=== PATIENT | female | born 1995 | race Caucasian/White ===

== ENCOUNTER 2016-09-25 09:02 | Emergency (ER) | payer MEDICAID ==
[2016-09-25] MEDS: NORMAL SALINE 1000 ML 1,000 ML IV PRN ×2 (10:12→10:13)
[2016-09-25 10:19] LABS: ABSOLUTE EOSINOPHILS # (AUTO) 0.1 10^3/uL (0.0-0.6); ABSOLUTE MONOCYTES (AUTO) 0.7 10^3/uL (0.1-1.4); ABSOLUTE NEUT (AUTO) 14.3 10^3/uL (1.7-8.2); BASOPHILS % (AUTO) 0.2 % (0-2); EOSINOPHILS % (AUTO) 0.3 % (0-6); HEMATOCRIT 40.5 % (36.0-47.0); HEMOGLOBIN 13.5 g/dL (12.0-15.5); LYMPHOCYTES % (AUTO) 11.6 % (13-45); MEAN CORPUSCULAR HEMOGLOBIN 31.7 pg (27.0-33.4); MEAN CORPUSCULAR HGB CONC 33.3 g/dL (32.0-36.0); MEAN CORPUSCULAR VOLUME 95 fl (80-97); MONOCYTES % (AUTO) 4.3 % (3-13); RED BLOOD COUNT 4.26 10^6/uL (3.72-5.28); RED CELL DISTRIBUTION WIDTH 13.8 % (11.5-14.0); SEGMENTED NEUTROPHILS % (AUTO) 83.6 % (42-78); WHITE BLOOD COUNT 17.2 10^3/uL (4.0-10.5)
--- NOTE | 2016-09-25 10:25 | ER Document Report ---
ED GI/ - General Chief Complaint: Nausea/Vomiting Stated Complaint: VOMITING Time Seen by Provider: 09/25/16 10:06 Mode of Arrival: Ambulatory Information source: Patient Notes: 21 tajik female 14 weeks c/o vomiting for 2 days. No vaginal bleeding. No diarrhea. No fever or chills. TRAVEL OUTSIDE OF THE [place] IN LAST 30 DAYS: No - Related Data Allergies/Adverse Reactions: No Known Allergies Allergy (Verified 09/25/16 09:11) Past Medical History - General Information source: Patient - Social History Smoking Status: Never Smoker Chew tobacco use (# tins/day): No Frequency of alcohol use: None Drug Abuse: None Lives with: Spouse/Significant other Family History: Reviewed & Not Pertinent Patient has suicidal ideation: No Patient has homicidal ideation: No Neurological Medical History: Reports: Hx Migraine Past Surgical History: Reports: Hx Oral Surgery - Immunizations Hx Diphtheria, Pertussis, Tetanus Vaccination: Yes Review of Systems - Review of Systems Constitutional: No symptoms reported EENT: No symptoms reported Cardiovascular: No symptoms reported Respiratory: No symptoms reported Gastrointestinal: See HPI Genitourinary: No symptoms reported Female Genitourinary: No symptoms reported Musculoskeletal: No symptoms reported Skin: No symptoms reported Hematologic/Lymphatic: No symptoms reported Neurological/Psychological: No symptoms reported Physical Exam - Vital signs Vitals: Temp Pulse Resp BP Pulse Ox 98.1 F 80 18 114/67 100 09/25/16 09:11 09/25/16 09:11 09/25/16 09:11 09/25/16 09:11 09/25/16 09:11 Interpretation: Normal - General General appearance: Appears well, Alert - HEENT Head: Normocephalic, Atraumatic Eyes: Normal Pupils: PERRL Mucous membranes: Dry Neck: Supple. No: Lymphadenopathy - Respiratory Respiratory status: No respiratory distress Chest status: Nontender Breath sounds: Normal Chest palpation: Normal - Cardiovascular Rhythm: Regular Heart sounds: Normal auscultation Murmur: No - Abdominal Inspection: Normal Distension: No distension Bowel sounds: Normal Tenderness: Nontender Organomegaly: Other - gravid uterus - Back Back: Normal, Nontender. No: CVA tenderness - Extremities General upper extremity: Normal inspection, Nontender, Normal color, Normal ROM , Normal temperature General lower extremity: Normal inspection, Nontender, Normal color, Normal ROM , Normal temperature, Normal weight bearing. No: Addison's sign - Neurological Neuro grossly intact: Yes Cognition: Normal Orientation: AAOx4 Melissa Coma Scale Eye Opening: Spontaneous Melissa Coma Scale Verbal: Oriented Melissa Coma Scale Motor: Obeys Commands Becker Coma Scale Total: 15 Speech: Normal Motor strength normal: LUE, RUE, LLE, RLE Sensory: Normal - Psychological Associated symptoms: Normal affect, Normal mood - Skin Skin Temperature: Warm Skin Moisture: Dry Skin Color: Normal Skin irregularity: negative: Rash Course - Re-evaluation Re-evalutation: 09/25/16 12:11 pt able to keep gingerale and saltines down without vomiting. FHR 156, she feels much better, will treat with Keflex pending the urine culture. UA showed 1 + bacteria. - Vital Signs Vital signs: Temp Pulse Resp BP Pulse Ox 98.6 F 94 16 115/62 98 09/25/16 12:34 09/25/16 12:34 09/25/16 12:34 09/25/16 12:34 09/25/16 12:34 - Laboratory Result Diagrams: 09/25/16 10:04 09/25/16 10:04 Laboratory results interpreted by me: 09/25/16 09/25/16 10:04 10:04 WBC 17.2 H Seg Neutrophils % 83.6 H Lymphocytes % 11.6 L Absolute Neutrophils 14.3 H BUN 5 L Creatinine 0.46 L AST 118 H ALT 123 H Discharge - Discharge Clinical Impression: Possible urinary tract infection, Vomiting Qualifiers: Vomiting type: unspecified Vomiting Intractability: non-intractable Nausea presence: with nausea Qualified Code(s): R11.2 - Nausea with vomiting, unspecified Condition: Good Disposition: HOME, SELF-CARE Instructions: Vomiting ([facility]), Intravenous (IV) Fluids ([facility]), Urinary Tract Infection ([facility]), Cephalexin ([facility]) Additional Instructions: plenty of fluids to er if worse urine culture is pending see your oBGYN for follow up urine culture is pending Prescriptions: Cephalexin Monohydrate [Keflex 500 mg Capsule] 500 mg PO QID #28 capsule Referrals: MAYURI DRUMMOND MD [Primary Care Provider] - Follow up as needed
[2016-09-25 10:29] LABS: AMORPHOUS SEDIMENT,URINE TRACE /HPF; APPEARANCE,URINE CLOUDY; BILIRUBIN,URINE NEGATIVE (NEGATIVE); GLUCOSE, URINE NEGATIVE (NEGATIVE); KETONES,URINE NEGATIVE (NEGATIVE); LEUKOCYTE ESTERASE,URINE NEGATIVE (NEGATIVE); NITRITE,URINE NEGATIVE (NEGATIVE); PROTEIN,URINE NEGATIVE (NEGATIVE); UROBILINOGEN,URINE NEGATIVE mg/dL (<2.0)
--- NOTE | 2016-09-25 10:34 | ER Document Report ---
ED Medical Screen (RME) - General Chief Complaint: Nausea/Vomiting Stated Complaint: VOMITING Time Seen by Provider: 09/25/16 10:06 Notes: Patient is 14 weeks . Presents with nausea, vomiting, and lightheadedness. Called [facility] and was sent in. Patient denies bleeding or cramping. I have greeted and performed a rapid initial assessment of this patient. A comprehensive ED assessment and evaluation of the patient, analysis of test results and completion of the medical decision making process will be conducted by additional ED providers. TRAVEL OUTSIDE OF THE [place] IN LAST 30 DAYS: No - Related Data Allergies/Adverse Reactions: No Known Allergies Allergy (Verified 09/25/16 09:11) Past Medical History - Social History Chew tobacco use (# tins/day): No Frequency of alcohol use: None Drug Abuse: None - Past Medical History Cardiac Medical History: Denies: Hx Atrial Fibrillation, Hx Congestive Heart Failure, Hx Coronary Artery Disease, Hx Heart Attack, Hx Hypercholesterolemia, Hx Hypertension Pulmonary Medical History: Denies: Hx Asthma, Hx Bronchitis, Hx COPD, Hx Pneumonia, Hx Tuberculosis Neurological Medical History: Reports: Hx Migraine. Denies: Hx Cerebrovascular Accident, Hx Seizures Endocrine Medical History: Denies: Hx Diabetes Mellitus Type 1, Hx Diabetes Mellitus Type 2 Renal/ Medical History: Denies: Hx End Stage Renal Disease, Hx Kidney Stones, Hx Peritoneal Dialysis GI Medical History: Denies: Hx Gastroesophageal Reflux Disease, Hx Hiatal Hernia , Hx Ulcer Musculoskeltal Medical History: Denies Hx Arthritis Psychiatric Medical History: Denies: Hx Attention Deficit Hyperactivity Disorder, Hx Bipolar Disorder, Hx Depression, Hx Schizophrenia Past Surgical History: Reports: Hx Oral Surgery - Immunizations Hx Diphtheria, Pertussis, Tetanus Vaccination: Yes Physical Exam - Vital signs Vitals: Temp Pulse Resp BP Pulse Ox 98.1 F 80 18 114/67 100 09/25/16 09:11 09/25/16 09:11 09/25/16 09:11 09/25/16 09:11 09/25/16 09:11 Course - Vital Signs Vital signs: Temp Pulse Resp BP Pulse Ox 98.1 F 80 18 114/67 100 09/25/16 09:11 09/25/16 09:11 09/25/16 09:11 09/25/16 09:11 09/25/16 09:11 - Laboratory Result Diagrams: 09/25/16 10:04 09/25/16 10:04 Laboratory results interpreted by me: 09/25/16 10:04 WBC 17.2 H Seg Neutrophils % 83.6 H Lymphocytes % 11.6 L Absolute Neutrophils 14.3 H
[2016-09-25 10:41] LABS: ALANINE AMINOTRANSFERASE 123 U/L (9-52); ALBUMIN 4.3 g/dL (3.5-5.0); ALKALINE PHOSPHATASE 55 U/L (38-126); ANION GAP 13 (5-19); ASPARTATE AMINO TRANSFERASE 118 U/L (14-36); BILIRUBIN,DIRECT 0.3 mg/dL (0.0-0.4); BILIRUBIN,TOTAL 0.4 mg/dL (0.2-1.3); BLOOD UREA NITROGEN 5 mg/dL (7-20); CALCIUM 9.6 mg/dL (8.4-10.2); CARBON DIOXIDE 22 mmol/L (22-30); CHLORIDE 104 mmol/L (98-107); CREATININE RESULT 0.46 mg/dL (0.52-1.25); GLUCOSE 89 mg/dL (75-110); SODIUM 139.3 mmol/L (137-145); TOTAL PROTEIN 7.3 g/dL (6.3-8.2)
[2016-09-25] MEDS ORDERED: CEPHALEXIN 500 MG CAPSULE PO ONE (12:10)
[2016-09-25 12:35] VITALS: BP 115/62
== END 2016-09-25 12:35 | disposition home or self-care (01) ==
LOC: ER 09:02
DX: O21.9 Vomiting of pregnancy, unspecified (principal); Z3A.14 14 weeks gestation of pregnancy
CPT/HCPCS: 99283; 96360; 36415; 87086; 85025; 80053; 81001; J7030

== ENCOUNTER 2017-03-15 21:35 | Outpatient (CLI) | payer MEDICAID ==
--- NOTE | 2017-03-15 21:45 | Non Stress Test Report ---
Non Stress Test Datetime Report Generated by CPN: 03/15/2017 21:45 DEMOGRAPHIC EGA NST: 35.3 INDICATION Indication for Study: Other MONITORING Monitor Explained: Monitor Explained; Test Explained; Patient Verbalized Understanding Time on Monitor: 02/14/2017 20:24 Time off Monitor: 02/14/2017 21:32 NST Duration: 68 NST INTERVENTIONS NST Interventions: PO Hydration Physician Notified NST: Dr Cobos BABY A: [id number] BABY A Movement : Present Contraction Frequency : 2-4 FHR Baseline : 135 Accelerations : 15X15 Decelerations : None Variability : Moderate 6-25bpm NST Review: Meets Criteria for Reactive NST NST Review and Verified By : Shai Jackson RN NST Results: Reactive NST REPORT Report Trigger: Send Report
[2017-03-15 22:15] LABS: BILIRUBIN,URINE NEGATIVE (NEGATIVE); GLUCOSE, URINE NEGATIVE (NEGATIVE); KETONES,URINE TRACE mg/dL (NEGATIVE); LEUKOCYTE ESTERASE,URINE SMALL (NEGATIVE); NITRITE,URINE POSITIVE (NEGATIVE); PROTEIN,URINE 30 mg/dL (NEGATIVE); URINE SPECIFIC GRAVITY 1.025
[2017-03-15 22:17] LABS: APPEARANCE,URINE HAZY
[2017-03-15 22:58] LABS: URINE BARBITURATES SCREEN NEGATIVE; URINE METHADONE SCREEN NEGATIVE; URINE OPIATES LOW NEGATIVE; URINE PHENCYCLIDINE SCREEN NEGATIVE
[2017-03-15] MEDS ORDERED: ONDANSETRON 4 MG TAB.RAPDIS ONE (23:14)
[2017-03-15] MEDS ORDERED: ONDANSETRON 4 MG TAB.RAPDIS PO ONE (23:31)
[2017-03-15] MEDS ORDERED: RINGERS SOLUTION,LACTATED 1,000 ML IV PRN (23:58)
[2017-03-16] MEDS ORDERED: HYDROXYZINE PAMOATE 50 MG CAPSULE PO ONE (00:37)
[2017-03-16] MEDS ORDERED: HYDROXYZINE PAMOATE 50 MG CAPSULE ONE (00:41)
--- NOTE | 2017-03-16 01:11 | Non Stress Test Report ---
Non Stress Test Datetime Report Generated by CPN: 03/16/2017 01:11 DEMOGRAPHIC EGA NST: 39.4 INDICATION Indication for Study: Ordered by Provider MONITORING Monitor Explained: Monitor Explained; Test Explained; Patient Verbalized Understanding Time on Monitor: 03/15/2017 21:51 Time off Monitor: 03/16/2017 00:45 NST Duration: 174 NST INTERVENTIONS NST Interventions: PO Hydration; IV Fluids; Reposition Patient Physician Notified NST: Dr. Reyes BABY A Movement : Present Contraction Frequency : 3-6 FHR Baseline : 130 Accelerations : 15X15 Decelerations : None Variability : Moderate 6-25bpm NST Review: Meets Criteria for Reactive NST NST Review and Verified By : irma CH Results: Reactive NST REPORT Report Trigger: Send Report
== END 2017-03-16 01:03 | disposition home or self-care (01) ==
LOC: LC 21:35
PROVIDERS: ATTEND Student in an Organized Health Care Education/Training Program
PROC: 4A1HXCZ Monitoring of Products of Conception, Cardiac Rate, External Approach (ICD-10-PCS; principal; 2017-03-15)
DX: O47.1 False labor at or after 37 completed weeks of gestation (principal); Z3A.39 39 weeks gestation of pregnancy
CPT/HCPCS: 59025; 87086; 81005; 87088; 87186; 80307; S0119; J3490

== ENCOUNTER 2017-03-18 05:43 | Outpatient (CLI) | payer MEDICAID ==
[2017-03-18 06:16] LABS: AMNISURE (ROM) NEGATIVE (NEGATIVE)
--- NOTE | 2017-03-21 22:31 | Non Stress Test Report ---
Non Stress Test Datetime Report Generated by CPN: 03/21/2017 22:31 DEMOGRAPHIC EGA NST: 40.0 INDICATION Indication for Study: Ordered by Provider MONITORING Monitor Explained: Monitor Explained; Test Explained; Patient Verbalized Understanding Time on Monitor: 03/18/2017 06:38 Time off Monitor: 03/18/2017 06:50 NST Duration: 12 NST INTERVENTIONS NST Interventions: PO Hydration; Reposition Patient Physician Notified NST: Dr. Gerard BABY A: [id number] BABY A Movement : Present Contraction Frequency : 3-5 FHR Baseline : 135 Accelerations : 15X15 Decelerations : Variable Variability : Moderate 6-25bpm NST Review: Meets Criteria for Reactive NST NST Review and Verified By : DAQUAN Monahan Results: Reactive NST REPORT Report Trigger: Send Report
== END 2017-03-18 06:50 | disposition home or self-care (01) ==
LOC: LC 05:43
PROVIDERS: ATTEND Obstetrics & Gynecology
PROC: 4A1HXCZ Monitoring of Products of Conception, Cardiac Rate, External Approach (ICD-10-PCS; principal; 2017-03-18)
DX: O47.1 False labor at or after 37 completed weeks of gestation (principal); Z3A.40 40 weeks gestation of pregnancy
CPT/HCPCS: 59025; 84112

== ENCOUNTER 2017-03-21 22:30 | Inpatient (IN) | payer MEDICAID ==
[2017-03-21 23:17] LABS: APPEARANCE,URINE SLIGHTLY-CLOUDY; BILIRUBIN,URINE NEGATIVE (NEGATIVE); GLUCOSE, URINE NEGATIVE (NEGATIVE); KETONES,URINE NEGATIVE (NEGATIVE); LEUKOCYTE ESTERASE,URINE TRACE (NEGATIVE); NITRITE,URINE POSITIVE (NEGATIVE); PROTEIN,URINE NEGATIVE (NEGATIVE); URINE SPECIFIC GRAVITY 1.011; UROBILINOGEN,URINE NEGATIVE mg/dL (<2.0)
[2017-03-21] MEDS ORDERED: MISOPROSTOL 0.2 MG TABLET ONE (23:20)
[2017-03-21] MEDS ORDERED: LIDOCAINE 1% INJ-PF (10 MG/ML) 30 ML SDV ONE (23:20)
[2017-03-21] MEDS ORDERED: OXYTOCIN/NORMAL SALINE 20 UNIT/1,000 ML RTUINJ ONE (23:21)
[2017-03-21 23:23] LABS: AMNISURE (ROM) NEGATIVE (NEGATIVE)
[2017-03-21 23:31] LABS: URINE BARBITURATES SCREEN NEGATIVE; URINE METHADONE SCREEN NEGATIVE; URINE OPIATES LOW NEGATIVE; URINE PHENCYCLIDINE SCREEN NEGATIVE
[2017-03-21 23:41] LABS: ABSOLUTE EOSINOPHILS # (AUTO) 0.1 10^3/uL (0.0-0.6); ABSOLUTE MONOCYTES (AUTO) 0.7 10^3/uL (0.1-1.4); ABSOLUTE NEUT (AUTO) 8.7 10^3/uL (1.7-8.2); BASOPHILS % (AUTO) 0.3 % (0-2); EOSINOPHILS % (AUTO) 0.6 % (0-6); HEMATOCRIT 34.3 % (36.0-47.0); HEMOGLOBIN 11.8 g/dL (12.0-15.5); HGB HCT DIFFERENCE 1.1; LYMPHOCYTES % (AUTO) 23.8 % (13-45); MEAN CORPUSCULAR HEMOGLOBIN 30.3 pg (27.0-33.4); MEAN CORPUSCULAR HGB CONC 34.3 g/dL (32.0-36.0); MEAN CORPUSCULAR VOLUME 88 fl (80-97); MONOCYTES % (AUTO) 5.6 % (3-13); RED BLOOD COUNT 3.88 10^6/uL (3.72-5.28); RED CELL DISTRIBUTION WIDTH 14.1 % (11.5-14.0); SEGMENTED NEUTROPHILS % (AUTO) 69.7 % (42-78); WHITE BLOOD COUNT 12.5 10^3/uL (4.0-10.5)
[2017-03-22] MEDS ORDERED: FENTANYL/BUPIVACAINE/NS/PF 200 MCG/100 ML RTUINJ EPI ONE (00:07)
[2017-03-22] MEDS ORDERED: BUPIVACAINE HCL 0.25 % INJ/PF (2.5 MG/1 ML) 30 ML VIAL ONE (00:07)
[2017-03-22] MEDS ORDERED: EPHEDRINE SULFATE INJ 50 MG/1 ML AMPULE ONE (00:07)
[2017-03-22] MEDS ORDERED: ONDANSETRON HCL INJ/PF 4 MG/2 ML SDV ONE (01:05)
[2017-03-22] MEDS ORDERED: ONDANSETRON HCL INJ/PF 4 MG/2 ML SDV IV ONE (01:07)
[2017-03-22] MEDS ORDERED: OXYTOCIN/NORMAL SALINE 20 UNIT/1,000 ML RTUINJ IV PRN ×2 (01:43→02:08)
--- NOTE | 2017-03-22 01:58 | L&D Progress Notes ---
PROGRESS NOTES Datetime Report Generated by CPN: 03/22/2017 01:58 PROGRESS NOTE Impression: Normal Progression of Labor Procedures: Artificial ROM; Sterile Vag Exam Plan: Continue Present Management; Anticipate Vaginal Delivery Vital Signs : Reviewed; Within Normal Limits VAGINAL EXAM Dilatation: 8 Dilatation: 9 Effacement: 90 Effacement: 90 Station: -1 Station: 0 Contractions: q 2-3 min Contractions: q 2 min MEMBRANES Membranes: Intact Membranes: Ruptured Amniotic Fluid Color: Meconium, Light Amniotic Fluid Color: Meconium, Light FETUS A FHR - Baseline: 135 Monitoring: External US Variability: Moderate 6-25bpm Accelerations: 10X10 Decelerations: Variable FHR Category: Category II SIGNATURE SIGNATURE: [id number] SIGNATURE: ,[id number] SIGNATURE: ,[id number] SIGNATURE: ,[id number] Signature: with User ID: [email or web address]
[2017-03-22] MEDS ORDERED: ZOLPIDEM TARTRATE 5 MG TABLET PO PRN (02:08)
[2017-03-22] MEDS ORDERED: BENZOCAINE/MENTHOL AEROSOL SPRAY 56 ML TOP PRN (02:08)
[2017-03-22] MEDS ORDERED: DIBUCAINE 1% OINTMENT 28 GM TP PRN (02:08)
[2017-03-22] MEDS ORDERED: DIPH/PERTUSS(ACELL)/TETANUS VAC/PF 0.5 ML SYR (>=10YO) IM PRN (02:08)
[2017-03-22] MEDS ORDERED: MEASLES,MUMPS&RUBELLA VACC/PF 0.5 ML VIAL SUBCUT PRN (02:08)
[2017-03-22] MEDS ORDERED: PROMETHAZINE HCL 25 MG TABLET PO PRN (02:09)
[2017-03-22] MEDS ORDERED: ONDANSETRON HCL 8 MG TABLET PO PRN (02:09)
[2017-03-22] MEDS ORDERED: DIPHENHYDRAMINE HCL 25 MG CAPSULE PO PRN (02:10)
[2017-03-22] MEDS ORDERED: ACETAMINOPHEN 325 MG TABLET PO PRN (02:10)
[2017-03-22] MEDS ORDERED: FAMOTIDINE 20 MG TABLET PO PRN (02:11)
[2017-03-22] MEDS: RINGERS SOLUTION,LACTATED 1,000 ML IV PRN ×2 (02:41→02:42)
[2017-03-22] MEDS ORDERED: MAG HYDROX/AL HYDROX/SIMETH SUSP 30 ML UDCUP ONE (02:52)
[2017-03-22] MEDS ORDERED: FAMOTIDINE 20 MG TABLET ONE (02:55)
--- NOTE | 2017-03-22 03:10 | Delivery Summary ---
Del Sum A-C Datetime Report Generated by CPN: 03/22/2017 03:10 DELIVERY PERSONNEL DELIVERY PERSONNEL: [id number] Delivery Doctor:: Dr. Canela Labor and Delivery Nurse:: Hortensia Kilgore RNboat master Nurse:: Shobha Quesada RN Nursery Nurse:: Annie Cassidy RN Superintendent [employer]/S[employer]: Shanthi Lopez CNA Superintendent [employer]/SAL[employer]ERSON [employer]: Raquel Angeles, ST MATERNAL INFORMATION Delivery Anesthesia: Epidural Medications After Delivery: Pitocin Bolus-Please Comment Maternal Complications: Precipitous Labor (<3hrs) Provider Comments: Pt C_P at 0059. variable decels with pushing. At 0127, Kiwi applied with 1 pop-off. 2nd pop-off occurred at 0135. Pt continued to push with reassuring FHR but continued variables with contractions. Kiwi applied a final time at 0140 with subsequent pop-off. head at +2 station. Pt continued to push with progress made toward delivery. Ritgen maneuver performed to deliver head. Anterior and posterior shoulder delivered followed by rest of body. Baby placed on mom's abdomen. After 1 min, cord clamped x 2 and cut by FOB. Cord blood collected. Placenta delivered intact with 3VC. No lacerations noted. Fundus firm. LABOR SUMMARY EDC: 03/18/2017 00:00 No. Babies in Womb: 1 Attempted: No Labor Anesthesia: None LABOR INFORMATION Reason for Induction: Not Applicable Onset of Labor: 03/21/2017 23:03 Complete Dilatation: 03/22/2017 00:56 Oxytocin: N/A Group B Beta Strep: negative Antibiotics # of Doses: 0 Antibiotics Time of Last Dose: n/a Steroids Given: None Reason Steroids Not Administered: Not Applicable MEMBRANES Membranes Rupture Method: Artificial Rupture of Membranes: 03/21/2017 23:34 Length of Rupture (hr): 2.15 Amniotic Fluid Color: Light Meconium Amniotic Fluid Amount: Large Amniotic Fluid Odor: Normal STAGES OF LABOR Stage 1 hr: 1 Stage 1 min: 53 Stage 2 hr: 0 Stage 2 min: 47 Stage 3 hr: 0 Stage 3 min: 5 Total Time in Labor hr: 2 Total Time in Labor min: 45 VAGINAL DELIVERY Episiotomy: None Laceration #1: None Laceration Extension #1: N/A Laceration Repair: Not Applicable Sponge Count Correct: N/A Sharps Count Correct: Yes CSECTION DELIVERY Primary Indication: N/A Secondary Indication: N/A CSection Incidence: N/A Labor: N/A Elective: N/A CSection Incision: N/A BABY A INFORMATION Delivery Date/Time: 03/22/2017 01:43 Method of Delivery: Vaginal Born in Route : No : N/A Forceps: N/A Vacuum Extraction: Failed Shoulder Dystocia : No PRESENTATION/POSITION BABY A Presentation: Cephalic Cephalic Presentation: Vertex Vertex Position: Right Occipital Anterior Breech Presentation: N/A PLACENTA INFORMATION BABY A Placenta Delivery Time : 03/22/2017 01:48 Placenta Method of Delivery: Spontaneous Placenta Status: Delivered SCORES BABY A Heart Rate 1 min: >100 bpm Resp Effort 1 min: Good Cry Reflex Irritability 1 min: Cough or Sneeze or Pulls Away Muscle Tone 1 min: Active Motion Color 1 min: Blue/Pale Resuscitation Effort 1 min: Tactile Stimulation SCORE 1 MIN: 8 Heart Rate 5 min: >100 bpm Resp Effort 5 min: Good Cry Reflex Irritability 5 min: Cough or Sneeze or Pulls Away Muscle Tone 5 min: Active Motion Color 5 min: Body [place], Extremities Blue Resuscitation Effort 5 min: Tactile Stimulation SCORE 5 MIN: 9 INFORMATION BABY A Gestational Age at Delivery: 40.4 Gestational Status: Full Term- 39- 40.6 Weeks Infant Outcome : Liveborn Condition : Stable Sex: Male IDENTIFICATION BABY A Infant Verification Date/Time: 03/22/2017 02:01 ID Band Number: [id number] Mother's Name Verified: Yes RN Verifying : Carla A. RN Additional Verifying Personnel: Gloria Diop RN WEIGHT/LENGTH BABY A Birthweight (gm): 3620 Infant Weight (lb): 8 Weight (oz): 0 Length (in): 21.00 Length (cm): 53.34 CORD INFORMATION BABY A No. Cord Vessels: 3 Nuchal Cord : N/A Cord Blood Taken: Yes-For Storage (Mom's Blood type +) Infant Suction: Mouth; Nose ASSESSMENT BABY A Infant Complications: Extended Bradycardia; Multiple Late Decels Physical Findings- Other: see nursery assessment Infant Respirations: Appears Normal Skin to Skin: Yes Skin to Skin Time (min): 30 Child Care Leader/ALS Called : No Infant Care By: Celina Cassidy RN Transferred To: Remains with Mother SIGNATURES Signature: with User ID: [email or web address]
[2017-03-22] MEDS ORDERED: IBUPROFEN 800 MG TABLET ONE (03:39)
[2017-03-22] MEDS: IBUPROFEN 800 MG TABLET PO PRN ×2 (03:40→16:22)
--- NOTE | 2017-03-22 04:00 | Admission Physical ---
Datetime Report Generated by CPN: 03/22/2017 03:59 CURRENT ADMISSION Chief Complaint: Uterine Contractions Indication for Induction: Not Applicable Indication for Induction: Term, Intrauterine ; Active Labor; Intact Membranes Admit Plan: Admit to Unit; Initiate Labor Protocol ALLERGIES Medication Allergies: No Medication Allergies: No Known Allergies (03/21/2017) Medication Allergies: No Known Allergies (03/18/2017) Medication Allergies: No Known Allergies (03/15/2017) Medication Allergies: No Known Allergies (02/14/2017) Medication Allergies: No Known Allergies (09/25/2016) Medication Allergies: No Known Allergies (11/18/2014) Latex: No Latex Allergies Food Allergies: N/A Environmental Allergies: N/A OBSTETRICAL HISTORY EDC: 03/18/2017 00:00 : 3 Para: 1 Term: 1 : 0 SAB: 0 IAB: 0 Ectopic: 0 Livin Cesareans: 0 VBACs: 0 Multiple Births: 0 Gestational Diabetes: No Rh Sensitization: No Incompetent Cervix: No ASUNCION: No Infertility: No ART Treatment: No Uterine Anomaly: No IUGR: No Hx Previous C/S: No Macrosomia: No Hx Loss/Stillborn: No PIH: No Hx : No Placenta Previa/Abruption: No Depression/PP Depression: No PTL/PROM: No Post Hemorrhage: No Current Procedures: Ultrasound; NST Obstetrical History Comments: - 2008 SAB w/D_C G2- G3- current SEE RECORDS Alcohol: No Marijuana : No Cocaine: No Other Illicit Drugs: No Cigarettes: Never Smoker. [id number] MEDICAL HISTORY Diabetes: No Blood Transfusion: No Pulmonary Disease (Asthma, TB): No Breast Disease: No Hypertension: No Pipe Recovery Specialist Surgery: No Heart Disease: No Hosp/Surgery: Yes Autoimmune Disorder: No Anesthetic Complications: No Kidney Disease: No Abnormal Pap Smear: No Neuro/Epilepsy: No Psychiatric Disorders: No Other Medical Diseases: Yes Hepatitis/Liver Disease: No Significant Family History: No Varicosities/Phlebitis: No Trauma/Violence : No Thyroid Dysfunction: No Medical History Comments: oral infection w/all teeth removed 2015; childbirth INFECTIOUS HISTORY Gonorrhea: No Genital Herpes: No Chlamydia: No Tuberculosis: No Syphilis: No Hepatitis: No HIV/AIDS Exposure: No Rash or Viral Illness: No HPV: No PHYSICAL EXAM General: Normal HEENT: Normal Neurologic: Normal Abdomen: Normal Genitourinary Exam: Normal Extremities: Normal Pelvic Type: Adequate Vital Signs: Reviewed; Within Normal Limits VAGINAL EXAM Dilatation: 8 Dilatation: 9 Effacement: 90 Effacement: 90 Station: -1 Station: 0 Contraction Comments: q 2-3 min Contraction Comments: q 2 min MEMBRANES Membranes: Intact Membranes: Ruptured Amniotic Fluid Color: Meconium, Light Amniotic Fluid Color: Meconium, Light FETUS A EGA: 40.4 Monitoring: External US FHR- Baseline: 135 Variability: Moderate 6-25bpm Accelerations: 10X10 Decelerations: Variable FHR Category: Category II PLANS FOR LABOR AND DELIVERY Labor and Delivery: None Pain Management: Epidural Feeding Preference: Formula Benefit of Breast Feed Discussed: Yes INFORMED CONSENT Signature: with User ID: [email or web address]
[2017-03-22] MEDS ORDERED: IBUPROFEN 800 MG TABLET PO SCH (06:00)
[2017-03-22] MEDS: HYDROCODONE/ACETAMINOPHEN 5-325 MG TABLET PO PRN (07:35)
[2017-03-22] MEDS: FERROUS SULFATE 325 MG TABLET PO SCH ×2 (09:40→18:10)
[2017-03-22] MEDS: DOCUSATE SODIUM 100 MG CAPSULE PO SCH ×2 (09:40→18:10)
[2017-03-22] MEDS: PRENATAL VITAMIN W DHA CAPSULE PO SCH (09:40)
[2017-03-23 07:49] LABS: HEMATOCRIT 28.9 % (36.0-47.0); HEMOGLOBIN 9.8 g/dL (12.0-15.5); HGB HCT DIFFERENCE 0.5; MEAN CORPUSCULAR HEMOGLOBIN 30.6 pg (27.0-33.4); MEAN CORPUSCULAR HGB CONC 33.8 g/dL (32.0-36.0); MEAN CORPUSCULAR VOLUME 90 fl (80-97); RED CELL DISTRIBUTION WIDTH 14.4 % (11.5-14.0); WHITE BLOOD COUNT 9.3 10^3/uL (4.0-10.5)
[2017-03-23] MEDS: FERROUS SULFATE 325 MG TABLET PO SCH ×2 (09:38→17:40)
[2017-03-23] MEDS: PRENATAL VITAMIN W DHA CAPSULE PO SCH (09:39)
[2017-03-23] MEDS: DOCUSATE SODIUM 100 MG CAPSULE PO SCH ×2 (09:39→17:39)
[2017-03-23] MEDS: IBUPROFEN 800 MG TABLET PO PRN ×2 (09:50→20:05)
[2017-03-23] MEDS: HYDROCODONE/ACETAMINOPHEN 5-325 MG TABLET PO PRN (14:50)
[2017-03-23] MEDS ORDERED: ACETAMINOPHEN WITH CODEINE #3 TABLET PO PRN (15:09)
--- NOTE | 2017-03-23 15:12 | PDOC PROGRESS REPORT ---
Subjective-OB Subjective: Post Delivery Day: 21 year old. complaining of abd cramping, not controlled with ibuprofen. formula feeding. tolerating diet and activity, bleeding diminishing. Physical Exam (OB) Vital Signs: Temp Pulse Resp BP Pulse Ox 97.9 F 99 14 103/66 99 03/23/17 08:51 03/23/17 08:51 03/23/17 08:51 03/23/17 08:51 03/23/17 08:51 Intake & Output 03/22/17 03/23/17 03/24/17 06:59 06:59 06:59 Weight 66.5 kg - Abdomen Description: Soft, Round Hernia Present: No Fundal Description: Firm, Midline Fundal Height: u/u - u/2 - Extremities Lower extremities: Addison's sign - neg Calf: Nontender Objective-Diagnostic Laboratory: 03/23/17 07:31 03/23/17 07:31 WBC 9.3 RBC 3.20 L Hgb 9.8 L Hct 28.9 L MCV 90 MCH 30.6 MCHC 33.8 RDW 14.4 H Plt Count 172
[2017-03-24 08:19] VITALS: BP 101/66
--- NOTE | 2017-03-24 09:55 | PDOC PROGRESS REPORT ---
Subjective-OB Subjective: Post Delivery Day: 21 year old. Denies any needs at this time Doing well, no c/o, feeling good, eating well, ambulating, scant lochia, bottle feeding Physical Exam (OB) Vital Signs: Temp Pulse Resp BP Pulse Ox 98.0 F 87 15 101/66 99 03/24/17 08:51 03/24/17 08:51 03/24/17 08:51 03/24/17 08:51 03/24/17 08:51 Intake & Output 03/23/17 03/24/17 03/25/17 06:59 06:59 06:59 Intake Total 240 Balance 240 - Lochia Lochia Amount: Scant < 10 ml Lochia Color: Rubra/Red - Abdomen Description: Soft, Round Hernia Present: No Fundal Description: Firm, Midline Fundal Height: u/u - u/2 Objective-Diagnostic Laboratory: 03/23/17 07:31 Assessment and Plan(PN) - Assessment and Plan (1) Smoker Is this a current diagnosis for this admission?: Yes (2) Depression Qualifiers: Depression Type: unspecified Qualified Code(s): F32.9 - Major depressive disorder, single episode, unspecified Is this a current diagnosis for this admission?: Yes (3) Delivery normal Is this a current diagnosis for this admission?: Yes - Time Spent with Patient Time with patient: Less than 15 minutes Medications reviewed and adjusted accordingly: Yes - Disposition Anticipated Discharge: Home Within: Other - home today
--- NOTE | 2017-03-24 09:58 | PDOC DISCHARGE SUMMARY ---
Final Diagnosis Discharge Date: 03/24/17 - Final Diagnosis (1) Smoker Is this a current diagnosis for this admission?: Yes (2) Depression Is this a current diagnosis for this admission?: Yes (3) Delivery normal Is this a current diagnosis for this admission?: Yes Discharge Data - Discharge Medication Home Medications: Pnv No.95/Ferrous Fum/Folic AC [ Formula Tablet] 1 tab PO DAILY Ranitidine HCl [Zantac] 150 mg PO DAILY 03/21/17 Gestational Age: 40.4 Reason(s) for Admission: Onset of Labor Procedures: NST, Ultrasound Intrapartum Procedure(s): Vacuum Extraction - varianle decelerations, bradycardia, late decels - Data Baby 1 Male at 1 minute: 8 at 5 minutes: 9 Weight: 3.629 kg Home with Mother: Yes Complications: No - Diagnosis Test Laboratory: Temp Pulse Resp BP Pulse Ox 98.0 F 87 15 101/66 99 03/24/17 08:51 03/24/17 08:51 03/24/17 08:51 03/24/17 08:51 03/24/17 08:51 03/21/17 03/21/17 03/23/17 22:40 23:14 07:31 RBC 3.88 3.20 L Hgb 11.8 L 9.8 L Hct 34.3 L 28.9 L Urine Opiates Screen NEGATIVE - Discharge information/Instructions Discharge Activity: Activity As Tolerated, Balance Activity w/Rest, No Lifting Over 10 Pounds, No Lifting/Push/Pulling, Pelvic Rest, No tub bath Discharge Diet: As Tolerated Disposition: HOME, SELF-CARE Follow up with: [facility] in: 4, Weeks
[2017-03-24] MEDS: DOCUSATE SODIUM 100 MG CAPSULE PO SCH (10:30)
[2017-03-24] MEDS: FERROUS SULFATE 325 MG TABLET PO SCH (10:30)
[2017-03-24] MEDS: PRENATAL VITAMIN W DHA CAPSULE PO SCH (10:31)
== END 2017-03-24 12:17 | disposition home or self-care (01) | DRG 775 ==
LOC: LC 22:30 → LR 23:09 → 2S 03-22 03:59
PROVIDERS: ADMIT Obstetrics & Gynecology; ATTEND Obstetrics & Gynecology
PROC: 10D07Z6 Extraction of Products of Conception, Vacuum, Via Natural or Artificial Opening (ICD-10-PCS; principal; 2017-03-22)
PROC: 4A1HXCZ Monitoring of Products of Conception, Cardiac Rate, External Approach (ICD-10-PCS; 2017-03-22)
DX: O76 Abnormality in fetal heart rate and rhythm complicating labor and delivery (principal); O77.0 Labor and delivery complicated by meconium in amniotic fluid; O62.3 Precipitate labor; O99.334 Smoking (tobacco) complicating childbirth; O99.344 Other mental disorders complicating childbirth; F32.9 Major depressive disorder, single episode, unspecified; Z3A.40 40 weeks gestation of pregnancy; Z37.0 Single live birth
CPT/HCPCS: 36415; 59025; 80307; 81005; 84112; 85025; 85027; 86592; 86850; 86900; 86901; J2405; J2590; J3490

== ENCOUNTER 2018-05-11 15:16 | Emergency (ER) | payer SELFPAY ==
[2018-05-11 16:42] LABS: ABSOLUTE EOSINOPHILS # (AUTO) 0.1 10^3/uL (0.0-0.6); ABSOLUTE LYMPHOCYTES (AUTO) 1.4 10^3/uL (0.5-4.7); ABSOLUTE MONOCYTES (AUTO) 0.4 10^3/uL (0.1-1.4); ABSOLUTE NEUT (AUTO) 6.9 10^3/uL (1.7-8.2); BASOPHILS % (AUTO) 0.3 % (0-2); EOSINOPHILS % (AUTO) 0.6 % (0-6); HEMATOCRIT 39.9 % (36.0-47.0); HEMOGLOBIN 13.7 g/dL (12.0-15.5); LYMPHOCYTES % (AUTO) 15.6 % (13-45); MEAN CORPUSCULAR HEMOGLOBIN 31.2 pg (27.0-33.4); MEAN CORPUSCULAR HGB CONC 34.2 g/dL (32.0-36.0); MEAN CORPUSCULAR VOLUME 91 fl (80-97); MONOCYTES % (AUTO) 4.5 % (3-13); PLATELET COUNT 216 10^3/uL (150-450); RED BLOOD COUNT 4.38 10^6/uL (3.72-5.28); RED CELL DISTRIBUTION WIDTH 14.7 % (11.5-14.0); TOTAL CELLS COUNTED % (AUTO) 100 %; WHITE BLOOD COUNT 8.7 10^3/uL (4.0-10.5)
[2018-05-11] MEDS ORDERED: LIDOCAINE 1% INJ-PF (10 MG/ML) 30 ML SDV INJ ONE (16:46)
[2018-05-11] MEDS ORDERED: CEFTRIAXONE INJ 250 MG VIAL IM ONE (16:46)
[2018-05-11] MEDS ORDERED: AZITHROMYCIN 250 MG TABLET PO ONE (16:46)
[2018-05-11 16:50] LABS: APPEARANCE,URINE CLOUDY; BILIRUBIN,URINE NEGATIVE (NEGATIVE); COLOR,URINE AMBER; GLUCOSE, URINE NEGATIVE (NEGATIVE); KETONES,URINE NEGATIVE (NEGATIVE); LEUKOCYTE ESTERASE,URINE LARGE (NEGATIVE); NITRITE,URINE NEGATIVE (NEGATIVE); PROTEIN,URINE 30 mg/dL (NEGATIVE); URINE SPECIFIC GRAVITY 1.029; UROBILINOGEN,URINE NEGATIVE mg/dL (<2.0)
--- NOTE | 2018-05-11 16:52 | ER Document Report ---
ED GI/ - General Chief Complaint: Flank Pain Stated Complaint: PAINFUL URINATION,LOW BACK PAIN Time Seen by Provider: 05/11/18 16:05 Primary Care Provider: [facility] [Provider Group] - Follow up as needed MAYURI DRUMMOND MD [Primary Care Provider] - Follow up tomorrow Mode of Arrival: Ambulatory Information source: Patient Notes: 22-year-old female presented to ED for complaint of abdominal pain pelvic pain flank pain back pain and general body aches with fatigue weight loss urinary pain and something is not right. She states is been going on for more than a month. She states her and her baby's father have been living together for a while but that they are not having any sex recently and now she is developed a vaginal discharge with pelvic pain and she is very concerned. She states she has a history of depression but is not been treated for and she states that is making everything worse. TRAVEL OUTSIDE OF THE [place] IN LAST 30 DAYS: No - HPI Patient complains to provider of: Abdominal pain, Dysuria, Flank pain, Pelvic pain, Vaginal discharge, Vaginal pain Onset: Other - Couple months Timing/Duration: Gradual Quality of pain: Achy, Cramping, Pressure, Sharp Severity at maximum: Severe Severity in ED: Severe Pain Level: 5 Location: LUQ, LLQ, RUQ, RLQ, Left flank, Right flank, Low back, Pelvis Vaginal bleeding (Compared to normal period): None Associated symptoms: Dizzy, Nausea, Urinary frequency, Urinary urgency, Vaginal discharge, Vomiting Exacerbated by: Denies Relieved by: Denies Similar symptoms previously: Yes Recently seen / treated by doctor: Yes - Related Data Allergies/Adverse Reactions: No Known Allergies Allergy (Verified 03/21/17 22:39) Past Medical History - General Information source: Patient - Social History Smoking Status: Never Smoker Frequency of alcohol use: None Drug Abuse: None Lives with: Family Family History: Reviewed & Not Pertinent Patient has suicidal ideation: No Patient has homicidal ideation: No - Past Medical History Cardiac Medical History: Reports: None Pulmonary Medical History: Reports: None EENT Medical History: Reports: None Neurological Medical History: Reports: Hx Migraine Endocrine Medical History: Reports: None Renal/ Medical History: Reports: Hx Ovarian Cysts Malignancy Medical History: Reports: None GI Medical History: Reports: Hx Gastroesophageal Reflux Disease Musculoskeletal Medical History: Reports None Skin Medical History: Reports None Psychiatric Medical History: Reports: Hx Anxiety, Hx Depression Traumatic Medical History: Reports: None Infectious Medical History: Reports: None Past Surgical History: Reports: Hx Oral Surgery - All teeth removed she has dentures - Immunizations Immunizations up to date: Yes Hx Diphtheria, Pertussis, Tetanus Vaccination: Yes Review of Systems - Review of Systems Constitutional: Recent illness EENT: No symptoms reported Cardiovascular: Dizziness Respiratory: No symptoms reported Gastrointestinal: Abdominal pain, Nausea, Vomiting Genitourinary: Burning, Flank pain Female Genitourinary: Vaginal discharge Musculoskeletal: Muscle pain Skin: No symptoms reported Hematologic/Lymphatic: No symptoms reported Neurological/Psychological: No symptoms reported -: Yes All other systems reviewed and negative Physical Exam - Vital signs Vitals: Temp Pulse Resp BP Pulse Ox 98.2 F 76 18 109/69 100 05/11/18 15:23 05/11/18 15:23 05/11/18 15:23 05/11/18 15:23 05/11/18 15:23 Interpretation: Normal - General General appearance: Appears well, Alert In distress: Mild - HEENT Head: Normocephalic, Atraumatic Eyes: Normal Pupils: PERRL - Respiratory Respiratory status: No respiratory distress Chest status: Nontender Breath sounds: Normal Chest palpation: Normal - Cardiovascular Rhythm: Regular Heart sounds: Normal auscultation Murmur: No - Abdominal Inspection: Normal Distension: No distension Bowel sounds: Normal Tenderness: Tender - Generalized Organomegaly: No organomegaly. No: Hepatomegaly, Splenomegaly, Mass - Genitourinary External exam: Other - Excoriated Speculum exam: Vaginal discharge - Green copious amounts, Other - Inflamed cervix and vagina Vaginal bleeding: None Bimanuel exam: Cervical motion tender, Adnexal tenderness - Back Back: Normal, Nontender - Extremities General upper extremity: Normal inspection, Nontender, Normal color, Normal ROM, Normal temperature General lower extremity: Normal inspection, Nontender, Normal color, Normal ROM, Normal temperature, Normal weight bearing. No: Addison's sign - Neurological Neuro grossly intact: Yes Cognition: Normal Orientation: AAOx4 [place] Coma Scale Eye Opening: Spontaneous [place] Coma Scale Verbal: Oriented Melissa Coma Scale Motor: Obeys Commands Melissa Coma Scale Total: 15 Speech: Normal Motor strength normal: LUE, RUE, LLE, RLE Sensory: Normal - Psychological Associated symptoms: Anxious, Tearful - Skin Skin Temperature: Warm Skin Moisture: Dry Skin Color: Normal Course - Re-evaluation Re-evalutation: 05/11/18 20:24 Labs and ultrasound were discussed with patient and written report of labs and ultrasound given to patient for follow-up with primary doctor and [facility]. Discharge instructions discussed and patient was able to verbalize understanding and agreement with treatment plan. - Vital Signs Vital signs: Temp Pulse Resp BP Pulse Ox 98.9 F 73 16 104/55 L 98 05/11/18 19:12 05/11/18 19:12 05/11/18 19:12 05/11/18 19:12 05/11/18 19:12 - Laboratory Result Diagrams: 05/11/18 16:30 05/11/18 16:30 Laboratory results interpreted by me: 05/11/18 05/11/18 15:59 16:30 RDW 14.7 H Seg Neutrophils % 79.0 H Urine Protein 30 H Urine Blood SMALL H Ur Leukocyte Esterase LARGE H - Diagnostic Test Radiology reviewed: Image reviewed, Reports reviewed Discharge - Discharge Clinical Impression: Bacterial vaginosis, Vaginal yeast infection, Pelvic pain UTI (urinary tract infection) Qualifiers: Urinary tract infection type: site unspecified Hematuria presence: with hematuria Qualified Code(s): N39.0 - Urinary tract infection, site not specified Ovarian cyst Qualifiers: Laterality: left Qualified Code(s): N83.202 - Unspecified ovarian cyst, left side Condition: Stable Disposition: HOME, SELF-CARE Additional Instructions: URINARY TRACT INFECTION: Your evaluation indicates that you have a urinary tract infection. This is due to germs growing in the bladder. This is a common problem. This infection usually responds quickly to antibiotics. Your antibiotic should be taken exactly as prescribed. Drink plenty of fluids -- three to four quarts a day. Occasionally, a bladder anesthetic will be prescribed to help stop the feeling of urgency until the antibiotic has a chance to clear the infection. This may cause your urine to be dark orange. Certain urine infections require a culture. If the doctor obtained a culture, the results will be back in two days. You should call to see if a change in treatment is needed. A repeat urinalysis after you finish treatment is often recommended. The physician will let you know if further testing is required. Call the doctor if you develop fever, chills, flank pain, inability to urinate, or blood in the urine. Ovarian Cyst as I have discussed with you it is a possible ovarian cyst on the left ovary but if it does not resolve it could be something more dangerous that is why you need to follow-up with [facility] in 3-4 days and have them monitor this left ovary. Your examination shows the presence of an ovarian cyst. This is a ball of fluid attached to the ovary. Ovarian cysts in women of child-bearing age are usually innocent. However, the cyst may cause pain when it grows or bursts. An innocent ovarian cyst will usually go away by itself. When the cyst becomes painful, you should rest. Pain medication may be required. Some women find a hot water bottle soothing. The pain usually resolves within one or two days. After menopause, an ovarian cyst may mean a tumor, and requires more aggressive evaluation -- usually surgery is recommended to remove or biopsy the cyst. A very large cyst requires evaluation at any age. Most cysts (even the innocent ones) require follow-up examination. Call the doctor or return at any time if the pain increases significantly, if you become faint, or if you experience vaginal bleeding. VAGINOSIS, BACTERIAL: Your exam shows you have bacterial vaginosis. This condition is due to an overgrowth of bacteria in the vagina. Symptoms may include vaginal itching or pain, a smelly discharge, and sometimes burning with urination. Normally this is not transmitted by sexual contact. Vaginosis can be treated with oral or topical antibiotics. Metronidazole (Flagyl) pills are usually effective. Topical vaginal creams include Cleocin and Metro-Gel. You should avoid sexual contact until your symptoms are all better. Call the doctor if you develop pelvic pain, fever, or problems with urination, or if you don't improve as expected. VAGINAL YEAST INFECTION: You have evidence of a yeast infection -- called "wilmer." A vaginal yeast infection often causes itching and discharge. While not dangerous, it can be very unpleasant. A yeast infection often follows the use of powerful antibiotics. It is more likely to occur in diabetics. The treatment now is usually a single pill of Diflucan, but also an antifungal cream or suppository may be used for a few days. You do not need to avoid sexual intercourse. Recurrences are common. You can make a recurrence less likely by wearing cotton underwear and avoiding tight clothing. For mild recurrences, you can try kpfx-mcp-dpatjms creams or suppositories that are made specifically for yeast. If the symptoms do not resolve, you should follow up for re-examination. Sometimes treatment of the sexual partner is necessary if infections are recurrent. CEPHALOSPORINS: An antibiotic of the cephalosporin class has been prescribed. This type of antibiotic covers a wide variety of infections, including those of the skin, lungs, middle ear, and urinary tract. This antibiotic is somewhat similar to the penicillin family. In rare cases, a person who is allergic to penicillin will also be allergic to this medication. If you have had a severe allergic reaction to penicillin, and have not taken this antibiotic since that time, notify your doctor. Antibiotics which cover many germs ("broad spectrum" antibiotics) are more likely to cause diarrhea or "yeast" infections. Women prone to vaginal yeast problems may suffer an attack after taking this antibiotic. In infants, oral thrush (white spots "stuck" on the cheek) or yeast diaper rash may result. See your doctor if these problems occur. Call the doctor at once if you develop hives, itching, shortness of breath, or lightheadedness. AZITHROMYCIN: Azithromycin (Zithromax) is a broad spectrum antibiotic in the same class as erythromycin. It can treat a variety of bacterial infections, but is most frequently used for respiratory infections. Azithromycin is extremely long-lasting. It accumulates in body tissues and continues to kill bacteria for many days. In order to improve absorption, Azithromycin should be taken at least one hour before or two hours after a meal. It does not have the same strong tendency to upset the stomach as erythromycin and is usually very well tolerated. Patients who have had a rash or other true allergic reactions to erythromycin should not take this medication. Call if you develop gastrointestinal distress, severe diarrhea, rash, hives, itching, or shortness of breath. METRONIDAZOLE: Metronidazole (Flagyl) has been prescribed. This medication is used to kill a type of bacteria called anaerobes, and protozoan parasites such as trichomonas and Giardia. Flagyl often causes a metallic taste in the mouth and mild nausea. Do not use alcohol in any form with Flagyl (including alcohol in medication elixirs). Flagyl interacts with alcohol to cause flushing, palpitations, headache, stomach cramps, and vomiting. Do not use Flagyl if you are taking Antabuse (disulfiram). Call the doctor at once if you develop rash, shortness of breath, itching, or lightheadedness. FLUCONAZOLE: Fluconazole (Diflucan) is an antifungal drug. It is useful for serious fungal infections, but is also excellent for oral or vaginal yeast infections. Diflucan interacts with some medicines. This is a concern if you are taking anticoagulants (such as Coumadin), phenytoin (Dilantin), cyclosporin, or oral hypoglycemics (such as tolbutamide, Orinase, glipizide, Glucotrol, glyburide, DiaBeta, Glynase, and Micronase). Be sure the doctor knows if you are taking one of these medicines. We don't know how Diflucan affects . If you are planning to become , discuss this with your doctor. Diflucan has few side effects. Minor side effects may include nausea, headache, or diarrhea. Call the doctor if you develop a skin rash, shortness of breath, or other new symptoms. CIPROFLOXACIN: You have been given an antibacterial agent, ciprofloxacin (Cipro). This medicine is not related to the penicillins, sulfas, cephalosporins, or tetracyclines. It is often given to patients who are allergic to these drugs. It has been chosen for you either because other drugs are not appropriate, or because of the nature of your problem. Cipro should not be taken with antacids, as these can decrease its effec tiveness. It can be taken without regard to meals. CIPRO SHOULD NOT BE TAKEN BY CHILDREN, NURSING WOMEN, OR WOMEN. Although Cipro is usually well-tolerated, common side effects can include nausea and diarrhea. Contact your doctor if you experience any unusual symptoms while on this medication, such as joint pain or swelling, shortness of breath, wheezing, faintness, or hives. FOLLOW-UP CARE: If you have been referred to a physician for follow-up care, call the physicians office for an appointment as you were instructed or within the next two days. If you experience worsening or a significant change in your symptoms, notify the physician immediately or return to the Emergency Department at any time for re-evaluation. Prescriptions: Ciprofloxacin HCl [Cipro 500 mg Tablet] 500 mg PO BID #10 tablet Fluconazole [Diflucan] 150 mg PO ONCE PRN #1 tablet PRN Reason: Metronidazole [Flagyl 500 mg Tablet] 500 mg PO BID #14 tablet Referrals: MAYURI DRUMMOND MD [Primary Care Provider] - Follow up tomorrow [facility] [Provider Group] - Follow up as needed
[2018-05-11 16:59] LABS: ALANINE AMINOTRANSFERASE 27 U/L (9-52); ALBUMIN 4.8 g/dL (3.5-5.0); ALKALINE PHOSPHATASE 58 U/L (38-126); ANION GAP 10 (5-19); ASPARTATE AMINO TRANSFERASE 17 U/L (14-36); BILIRUBIN,DIRECT 0.1 mg/dL (0.0-0.4); BILIRUBIN,TOTAL 0.6 mg/dL (0.2-1.3); BLOOD UREA NITROGEN 14 mg/dL (7-20); CALCIUM 9.4 mg/dL (8.4-10.2); CARBON DIOXIDE 26 mmol/L (22-30); CHLORIDE 106 mmol/L (98-107); GLUCOSE 100 mg/dL (75-110); LIPASE 212.7 U/L (23-300); POTASSIUM 4.3 mmol/L (3.6-5.0); SODIUM 141.9 mmol/L (137-145); TOTAL PROTEIN 7.1 g/dL (6.3-8.2)
[2018-05-11 17:05] LABS: BACTERIA (WET MOUNT) 4+ BACTERIA SEEN; T.VAGINALIS (WET MOUNT) NO TRICHOMONAS SEEN; WBCS (WET MOUNT) 4+ WBCS SEEN; YEAST (WET MOUNT) BUDDING YEAST SEEN
[2018-05-11 17:26] LABS: FREE T3 3.03 pg/mL (2.77-5.27); FREE T4 (FREE THYROXINE) 0.9 ng/dL (0.78-2.19)
[2018-05-11 17:39] LABS: THYROID STIMULATING HORMONE 2.63 uIU/mL (0.47-4.68)
[2018-05-11 18:32] LABS: CHLAM PCR NOT DETECTED (NOT DETECT); GON PCR NOT DETECTED (NOT DETECT)
[2018-05-11] MEDS ORDERED: ONDANSETRON 4 MG TAB.RAPDIS PO ONE (18:37)
--- NOTE | 2018-05-11 18:53 | RADIOLOGY REPORT (SQ) ---
EXAM DESCRIPTION: U/S NON-OB PELVIS TV W/O DOP COMPLETED DATE/TIME: 05/11/2018 6:35 pm REASON FOR STUDY: pelvic pain vaginal discharge COMPARISON: None. TECHNIQUE: Dynamic and static grayscale images acquired of the pelvis via transvaginal approach and recorded on PACS. Additional selected color Doppler and spectral images recorded. LIMITATIONS: None. FINDINGS: UTERUS: Contour normal. No mass. ENDOMETRIAL STRIPE: No focal or generalized thickening. No masses. CERVIX: No nabothian cysts. RIGHT OVARY AND DOPPLER: Normal size. No worrisome masses. Normal arterial vascular flow without evid ence for torsion. LEFT OVARY AND DOPPLER: There is a 2.1 x 1.9 x 2.3 cm mass in the left ovary with extensive internal echo is but no blood flow. This may be a hemorrhagic cyst. Solid mass not excluded. FREE FLUID: Pelvic free fluid. OTHER: No other significant finding. MEASUREMENTS: UTERUS: 8.6 cm ENDOMETRIAL STRIPE: 4.3 mm RIGHT OVARY: 4.3 cm LEFT OVARY: 3.5 cm IMPRESSION: Probable hemorrhagic cysts in the left ovary, however follow-up recommended to exclude a solid mass. Free fluid in the pelvis. COMMENT: Followup of asymptomatic indeterminate ovarian cysts detected by ultrasound in PREMENOPAUS [place] patients Cyst with findings suggestive of, but not classic for, hemorrhagic cyst, endometrioma or dermoid: *6-12 week followup US; if not a resolving hemorrhagic cyst, continued US or MRI followup; if endomet rioma or dermoid still not confirmed, consider surgical consultation Note: If cyst is clinically symptomatic or otherwise concerning, other followup may be warranted. Based on recommendations of the Society for Radiologists in Ultrasound Consensus Conference Statement 2010 on management of asymptomatic ovarian and other adnexal cysts imaged at ultrasound. TECHNICAL DOCUMENTATION: JOB ID: [id number] [employer]- All Rights Reserved Rev-08/28 Reading location - IP/workstation name: [email or web address]
[2018-05-11 19:13] VITALS: BP 104/55
== END 2018-05-11 19:23 | disposition home or self-care (01) ==
LOC: ER 15:16
DX: N39.0 Urinary tract infection, site not specified (principal); N76.0 Acute vaginitis; B96.89 Other specified bacterial agents as the cause of diseases classified elsewhere; N83.202 Unspecified ovarian cyst, left side; B37.3 Candidiasis of vulva and vagina; R10.2 Pelvic and perineal pain; R10.9 Unspecified abdominal pain; M54.9 Dorsalgia, unspecified; M79.10 Myalgia, unspecified site; R53.83 Other fatigue; R30.0 Dysuria; R10.12 Left upper quadrant pain; R10.11 Right upper quadrant pain; R10.31 Right lower quadrant pain; R10.32 Left lower quadrant pain; R42 Dizziness and giddiness; R11.2 Nausea with vomiting, unspecified
CPT/HCPCS: 99284; 96372; 36415; 84439; 87210; 83690; 84443; 84703; 85025; 80053; 81001; 84481; 87491; 87591; 76830; S0119; J3490; J0696

== ENCOUNTER 2019-06-21 19:21 | Inpatient (IN) | payer MEDICAID ==
[2019-06-21 20:16] LABS: APPEARANCE,URINE CLOUDY; BILIRUBIN,URINE NEGATIVE (NEGATIVE); COLOR,URINE YELLOW; GLUCOSE, URINE NEGATIVE (NEGATIVE); KETONES,URINE NEGATIVE (NEGATIVE); LEUKOCYTE ESTERASE,URINE LARGE (NEGATIVE); NITRITE,URINE POSITIVE (NEGATIVE); PROTEIN,URINE NEGATIVE (NEGATIVE); UROBILINOGEN,URINE NEGATIVE mg/dL (<2.0)
[2019-06-21 20:30] LABS: URINE AMPHETAMINES SCREEN NEGATIVE; URINE BARBITURATES SCREEN NEGATIVE; URINE BENZODIAZEPINES SCREEN NEGATIVE; URINE COCAINE SCREEN NEGATIVE; URINE METHADONE SCREEN NEGATIVE; URINE PHENCYCLIDINE SCREEN NEGATIVE
[2019-06-21] MEDS ORDERED: RINGERS SOLUTION,LACTATED 1,000 ML IV ONE (20:33)
[2019-06-21] MEDS ORDERED: RINGERS SOLUTION,LACTATED 1,000 ML IV PRN ×2 (20:33→22:25)
[2019-06-21 20:39] LABS: URINE MARIJUANA (THC) SCREEN UNCONFIRMED POSITIVE
[2019-06-21] MEDS ORDERED: CEFTRIAXONE INJ 1000 MG VIAL ONE (20:41)
[2019-06-21 20:59] LABS: ABSOLUTE EOSINOPHILS # (AUTO) 0.1 10^3/uL (0.0-0.6); ABSOLUTE LYMPHOCYTES (AUTO) 2.9 10^3/uL (0.5-4.7); ABSOLUTE MONOCYTES (AUTO) 0.6 10^3/uL (0.1-1.4); BASOPHILS % (AUTO) 0.3 % (0-2); HEMATOCRIT 31.7 % (36.0-47.0); LYMPHOCYTES % (AUTO) 24.5 % (13-45); MEAN CORPUSCULAR HEMOGLOBIN 31.4 pg (27.0-33.4); MEAN CORPUSCULAR HGB CONC 34.6 g/dL (32.0-36.0); MEAN CORPUSCULAR VOLUME 91 fl (80-97); MONOCYTES % (AUTO) 5.4 % (3-13); PLATELET COUNT 248 10^3/uL (150-450); RED CELL DISTRIBUTION WIDTH 13.8 % (11.5-14.0); SEGMENTED NEUTROPHILS % (AUTO) 68.8 % (42-78); TOTAL CELLS COUNTED % (AUTO) 100 %; WHITE BLOOD COUNT 11.7 10^3/uL (4.0-10.5)
[2019-06-21] MEDS ORDERED: CEFTRIAXONE 2 GM/D5W RTU 2 GM/50 ML RTUPB IV SCH (22:00)
--- NOTE | 2019-06-21 22:22 | Admission Physical ---
Datetime Report Generated by CPN: 06/21/2019 22:22 CURRENT ADMISSION Chief Complaint: Signs/Symptoms UTI Chief Complaint Other: Pyleonephritis on left Admit Impression : No Active Labor; Intact Membranes; Observation/Evaluation Admit Plan: Admit to Unit; Observation/Evaluation ALLERGIES Medication Allergies: No Medication Allergies: No Known Allergies (03/21/2017) Latex: No Latex Allergies Food Allergies: none Environmental Allergies: none OBSTETRICAL HISTORY EDC: 06/24/2019 00:00 : 4 Para: 2 SAB: 1 Livin Gestational Diabetes: No Rh Sensitization: No Incompetent Cervix: No ASUNCION: No Infertility: No ART Treatment: No Uterine Anomaly: No IUGR: No Hx Previous C/S: No Macrosomia: No Hx Loss/Stillborn: No PIH: No Hx : No Placenta Previa/Abruption: No Depression/PP Depression: No PTL/PROM: No Post Hemorrhage: No Current Procedures: Ultrasound Obstetrical History Comments: G1- 2011 G4- Current SEE RECORDS Alcohol: Yes Marijuana : Yes Cocaine: No Other Illicit Drugs: Yes Illicit Drug Comments: 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 Cigarettes: Former Smoker. [id number] MEDICAL HISTORY Diabetes: No Blood Transfusion: No Pulmonary Disease (Asthma, TB): No Breast Disease: No Hypertension: No [employer] Surgery: No Heart Disease: No Hosp/Surgery: Yes Autoimmune Disorder: Yes Anesthetic Complications: No Kidney Disease: No Abnormal Pap Smear: No Neuro/Epilepsy: No Psychiatric Disorders: No Other Medical Diseases: No Hepatitis/Liver Disease: No Significant Family History: No Varicosities/Phlebitis: No Trauma/Violence : No Thyroid Dysfunction: No Medical History Comments: D _ C in 2009, oral infection (all teeth removed involving infection), HSV in 2016, hx of peridontal disease, and depression. PHYSICAL EXAM General: Normal HEENT: Normal Neurologic: Normal Thyroid: Normal Heart: Normal Lungs: Normal Breast: Normal Back: Normal Abdomen: Normal Genitourinary Exam: Abnormal Extremities: Normal DTRs: Normal Pelvic Type: Adequate Physical Exam Comments: left CVA tenderness Vital Signs: Reviewed; Within Normal Limits VAGINAL EXAM Dilatation: 0 Effacement: 30 Station: -3 Contraction Comments: No regular ctx MEMBRANES Pooling: Negative Membranes: Intact FETUS A EGA: 39.4 Monitoring: External US FHR- Baseline: 135 Variability: Moderate 6-25bpm Accelerations: 15X15 Decelerations: None FHR Category: Category I Presentation: Vertex Admit Comment: 24 yo at 39.4 wks EGA iwth left pyelonephritis -VSS, afebrile -Left CVA tenderness with light tap -Nitrite positive urine , culture sent -NST reactive in triage. NST BID -Regular diet -Rocephin 2 gms IV Q 24 hours -Labs pending -IVF LR at 125 cc/hr -Plan admit with IV antibiotics, IVFs and UC to guide antibiotic therapy. WIll keep admitted until no CVA tenderness. No fever. -If pain not improved tomorrow would rec Renal US PLANS FOR LABOR AND DELIVERY Labor and Delivery: None Feeding Preference: Breast Benefit of Breast Feed Discussed: Yes Circumcision: Yes INFORMED CONSENT Signature: with User ID: Antonette : with User ID: [email or web address]
[2019-06-21] MEDS ORDERED: ACETAMINOPHEN 325 MG TABLET PO PRN (22:29)
[2019-06-21] MEDS ORDERED: ONDANSETRON HCL INJ/PF 4 MG/2 ML SDV IV PRN (22:30)
[2019-06-22 06:43] LABS: ABSOLUTE BASOPHILS # (AUTO) 0.1 10^3/uL (0.0-0.2); ABSOLUTE EOSINOPHILS # (AUTO) 0.2 10^3/uL (0.0-0.6); ABSOLUTE LYMPHOCYTES (AUTO) 2.9 10^3/uL (0.5-4.7); ABSOLUTE MONOCYTES (AUTO) 0.6 10^3/uL (0.1-1.4); ABSOLUTE NEUT (AUTO) 6.7 10^3/uL (1.7-8.2); BASOPHILS % (AUTO) 0.7 % (0-2); EOSINOPHILS % (AUTO) 2.2 % (0-6); HEMATOCRIT 29.3 % (36.0-47.0); HEMOGLOBIN 10.3 g/dL (12.0-15.5); LYMPHOCYTES % (AUTO) 27.8 % (13-45); MEAN CORPUSCULAR HEMOGLOBIN 31.9 pg (27.0-33.4); MEAN CORPUSCULAR HGB CONC 35.1 g/dL (32.0-36.0); MEAN CORPUSCULAR VOLUME 91 fl (80-97); MONOCYTES % (AUTO) 5.7 % (3-13); PLATELET COUNT 217 10^3/uL (150-450); RED BLOOD COUNT 3.23 10^6/uL (3.72-5.28); RED CELL DISTRIBUTION WIDTH 13.3 % (11.5-14.0); SEGMENTED NEUTROPHILS % (AUTO) 63.6 % (42-78); TOTAL CELLS COUNTED % (AUTO) 100 %; WHITE BLOOD COUNT 10.6 10^3/uL (4.0-10.5)
[2019-06-22 06:56] LABS: ANION GAP 5 (5-19); BLOOD UREA NITROGEN 5 mg/dL (7-20); CARBON DIOXIDE 22 mmol/L (22-30); CHLORIDE 108 mmol/L (98-107); GLUCOSE 75 mg/dL (75-110); POTASSIUM 3.9 mmol/L (3.6-5.0)
--- NOTE | 2019-06-22 07:41 | PDOC PROGRESS REPORT ---
Subjective Progress Note for:: 06/22/19 Subjective:: Doing much better this am. Denies fever overnight. No chills, n/v. Reports no dysuria with voiding this am and states her back pain is better. Good FM Reason For Visit: Physical Exam - Physical Exam Vital Signs: Temp Pulse Resp BP Pulse Ox 97.7 F 88 18 110/65 99 06/21/19 22:40 06/21/19 22:40 06/21/19 22:40 06/21/19 22:40 06/21/19 22:40 Intake & Output 06/21/19 06/22/19 06/23/19 06:59 06:59 06:59 Intake Total 400 Output Total 250 Balance 150 Weight 59 kg General appearance: PRESENT: no acute distress Cardiovascular exam: PRESENT: RRR, +S1, +S2 GI/Abdominal exam: PRESENT: normal bowel sounds Gentrourinary exam: PRESENT: other - NO CVA tenderness Psychiatric exam: PRESENT: appropriate affect Skin exam: PRESENT: dry, warm Result Laboratory Results: 06/22/19 06:27 06/22/19 06:27 06/21/19 06/21/19 06/21/19 19:35 20:47 20:47 WBC 11.7 H RBC 3.50 L Hgb 11.0 L Hct 31.7 L MCV 91 MCH 31.4 MCHC 34.6 RDW 13.8 Plt Count 248 Seg Neutrophils % 68.8 Sodium Potassium Chloride Carbon Dioxide Anion Gap BUN Creatinine Est GFR ( Amer) Glucose Calcium Urine Color YELLOW Urine Appearance CLOUDY Urine pH 6.0 Ur Specific [place] 1.010 Urine Protein NEGATIVE Urine Glucose (UA) NEGATIVE Urine Ketones NEGATIVE Urine Blood SMALL H Urine Nitrite POSITIVE H Ur Leukocyte Esterase LARGE H Blood Type A POSITIVE Antibody Screen NEGATIVE 06/22/19 06/22/19 06:27 06:27 WBC 10.6 H RBC 3.23 L Hgb 10.3 L Hct 29.3 L MCV 91 MCH 31.9 MCHC 35.1 RDW 13.3 Plt Count 217 Seg Neutrophils % 63.6 Sodium 135.0 L Potassium 3.9 Chloride 108 H Carbon Dioxide 22 Anion Gap 5 BUN 5 L Creatinine 0.39 L Est GFR ( Amer) > 60 Glucose 75 Calcium 8.0 L Urine Color Urine Appearance Urine pH Ur Specific [place] Urine Protein Urine Glucose (UA) Urine Ketones Urine Blood Urine Nitrite Ur Leukocyte Esterase Blood Type Antibody Screen Assessment & Plan - Diagnosis (1) Pyelonephritis affecting in third trimester Is this a current diagnosis for this admission?: Yes Plan: Afebrile No CVA tenderness today AFter ancef IV today may be D/c with f/u in office in 1-2 days for OB visit (2) Drug use affecting in third trimester Is this a current diagnosis for this admission?: Yes (3) Smoker Is this a current diagnosis for this admission?: Yes - Time Time Spent with patient: Less than 15 minutes Disposition: Stable .
[2019-06-22] MEDS ORDERED: FAMOTIDINE 20 MG TABLET PO SCH (08:00)
[2019-06-22 08:10] VITALS: BP 94/50
[2019-06-22] MEDS ORDERED: CEFTRIAXONE 2 GM/D5W RTU 2 GM/50 ML RTUPB IV ONE (08:37)
[2019-06-22] MEDS ORDERED: CEFTRIAXONE 2 GM/D5W RTU 2 GM/50 ML RTUPB IV SCH (10:00)
[2019-06-22] MEDS ORDERED: PRENATAL VITAMIN W DHA CAPSULE PO SCH (10:00)
--- NOTE | 2019-06-24 10:09 | PDOC DISCHARGE SUMMARY ---
Impression - Admit/DC Date/PCP Admission Date/Primary Care Provider: 06/21/19 20:36 MAYURI DRUMMOND MD Discharge Date: 06/22/19 - Discharge Diagnosis (1) Pyelonephritis affecting in third trimester Is this a current diagnosis for this admission?: Yes (2) Drug use affecting in third trimester Is this a current diagnosis for this admission?: Yes (3) Smoker Is this a current diagnosis for this admission?: Yes - Additional Information Resuscitation Status: Full Code - Admitted for left pyelonephritis . Recieved IV antibiotics. Was not febrile and WBC normal. CVA tenderness resolved. D/c on Keflex 500mg and hydration. Precautions given for worsening infection, labor , kick counts Discharge Diet: As Tolerated, Regular Discharge Activity: Activity As Tolerated, Pelvic Rest [facility] - 06/24/19 1:00 pm (CALL THE OFFICE FOR ANY QUESTIONS AND CONCERNS.) Prescriptions: Cephalexin Monohydrate [Keflex 500 mg Capsule] 500 mg PO BID 7 Days #14 capsule Home Medications: Cephalexin Monohydrate [Keflex 500 mg Capsule] 500 mg PO BID 7 Days #14 capsule 06/22/19 History of Present Illiness History of Present Illness: EMILY HENRIQUEZ is a 24 year old female Physical Exam - Physical Exam Vital Signs: Temp Pulse Resp BP Pulse Ox 97.7 F 67 18 94/50 L 97 06/22/19 09:30 06/22/19 09:30 06/22/19 09:30 06/22/19 07:25 06/22/19 09:30 Results Laboratory Results: WBC 10.6 10^3/uL (4.0-10.5) H 06/22/19 06:27 RBC 3.23 10^6/uL (3.72-5.28) L 06/22/19 06:27 Hgb 10.3 g/dL (12.0-15.5) L 06/22/19 06:27 Hct 29.3 % (36.0-47.0) L 06/22/19 06:27 MCV 91 fl (80-97) 06/22/19 06:27 MCH 31.9 pg (27.0-33.4) 06/22/19 06:27 MCHC 35.1 g/dL (32.0-36.0) 06/22/19 06:27 RDW 13.3 % (11.5-14.0) 06/22/19 06:27 Plt Count 217 10^3/uL (150-450) 06/22/19 06:27 Lymph % (Auto) 27.8 % (13-45) 06/22/19 06:27 [place] % (Auto) 5.7 % (3-13) 06/22/19 06:27 Eos % (Auto) 2.2 % (0-6) 06/22/19 06:27 Baso % (Auto) 0.7 % (0-2) 06/22/19 06:27 Absolute Neuts (auto) 6.7 10^3/uL (1.7-8.2) 06/22/19 06:27 Absolute Lymphs (auto) 2.9 10^3/uL (0.5-4.7) 06/22/19 06:27 Absolute Monos (auto) 0.6 10^3/uL (0.1-1.4) 06/22/19 06:27 Absolute Eos (auto) 0.2 10^3/uL (0.0-0.6) 06/22/19 06:27 Absolute Basos (auto) 0.1 10^3/uL (0.0-0.2) 06/22/19 06:27 Seg Neutrophils % 63.6 % (42-78) 06/22/19 06:27 Sodium 135.0 mmol/L (137-145) L 06/22/19 06:27 Potassium 3.9 mmol/L (3.6-5.0) 06/22/19 06:27 Chloride 108 mmol/L (98-107) H 06/22/19 06:27 Carbon Dioxide 22 mmol/L (22-30) 06/22/19 06:27 Anion Gap 5 (5-19) 06/22/19 06:27 BUN 5 mg/dL (7-20) L 06/22/19 06:27 Creatinine 0.39 mg/dL (0.52-1.25) L 06/22/19 06:27 Est GFR ( Amer) > 60 (>60) 06/22/19 06:27 Est GFR (MDRD) Non-Af > 60 (>60) 06/22/19 06:27 Glucose 75 mg/dL (75-110) 06/22/19 06:27 Calcium 8.0 mg/dL (8.4-10.2) L 06/22/19 06:27 Urine Color YELLOW 06/21/19 19:35 Urine Appearance CLOUDY 06/21/19 19:35 Urine pH 6.0 (5.0-9.0) 06/21/19 19:35 Ur Specific [place] 1.010 06/21/19 19:35 Urine Protein NEGATIVE mg/dL (NEGATIVE) 06/21/19 19:35 Urine Glucose (UA) NEGATIVE mg/dL (NEGATIVE) 06/21/19 19:35 Urine Ketones NEGATIVE mg/dL (NEGATIVE) 06/21/19 19:35 Urine Blood SMALL (NEGATIVE) H 06/21/19 19:35 Urine Nitrite POSITIVE (NEGATIVE) H 06/21/19 19:35 Urine Bilirubin NEGATIVE (NEGATIVE) 06/21/19 19:35 Urine Urobilinogen NEGATIVE mg/dL (<2.0) 06/21/19 19:35 Ur Leukocyte Esterase LARGE (NEGATIVE) H 06/21/19 19:35 Urine Ascorbic Acid NEGATIVE (NEGATIVE) 06/21/19 19:35 Urine Opiates Screen NEGATIVE 06/21/19 19:35 Urine Methadone Screen NEGATIVE 06/21/19 19:35 Ur Barbiturates Screen NEGATIVE 06/21/19 19:35 Ur Phencyclidine Scrn NEGATIVE 06/21/19 19:35 Ur Amphetamines Screen NEGATIVE 06/21/19 19:35 U Benzodiazepines Scrn NEGATIVE 06/21/19 19:35 Urine Cocaine Screen NEGATIVE 06/21/19 19:35 U Marijuana (THC) Screen UNCONFIRMED POSITIVE 06/21/19 19:35 RPR NONREACTIVE (NONREACTIVE) 06/21/19 20:47 Blood Type A POSITIVE 06/21/19 20:47 Antibody Screen NEGATIVE 06/21/19 20:47 Stroke Is this a Stroke Patient?: No Acute Heart Failure - Is this a Heart Failure Patient?: No
== END 2019-06-22 09:41 | disposition home or self-care (01) | DRG 832 ==
LOC: LC 19:21 → LR 20:36 → 2S 22:32
PROVIDERS: ADMIT Obstetrics & Gynecology; ATTEND Obstetrics & Gynecology
DX: O23.03 Infections of kidney in pregnancy, third trimester (principal); F11.20 Opioid dependence, uncomplicated; O99.323 Drug use complicating pregnancy, third trimester; Z3A.39 39 weeks gestation of pregnancy; O99.334 Smoking (tobacco) complicating childbirth; F17.200 Nicotine dependence, unspecified, uncomplicated; Z86.19 Personal history of other infectious and parasitic diseases
CPT/HCPCS: 36415; 59025; 80048; 80307; 80349; 81005; 85025; 86592; 86850; 86900; 86901; 87081; 87086; 87088; 87186; G0480; J0696; J3490

== ENCOUNTER 2019-07-05 13:12 | Outpatient (CLI) | payer MEDICAID ==
--- NOTE | 2019-07-05 13:33 | Non Stress Test Report ---
Non Stress Test Datetime Report Generated by CPN: 07/05/2019 13:33 DEMOGRAPHIC EGA NST: 39.4 MONITORING Monitor Explained: Monitor Explained; Test Explained; Patient Verbalized Understanding Time on Monitor: 06/21/2019 19:48 Time off Monitor: 06/21/2019 21:50 NST Duration: 122 NST INTERVENTIONS NST Interventions: PO Hydration; IV Fluids; Reposition Patient Physician Notified NST: Dr. Izquierdo BABY A: [id number] BABY A Movement : Present Contraction Frequency : irregular FHR Baseline : 135 Accelerations : 15X15 Decelerations : None Variability : Moderate 6-25bpm NST Review: Meets Criteria for Reactive NST NST Review and Verified By : DAQUAN LloydT Results: Reactive NST REPORT Report Trigger: Send Report
[2019-07-05 13:45] LABS: APPEARANCE,URINE SLIGHTLY-CLOUDY; BILIRUBIN,URINE NEGATIVE (NEGATIVE); COLOR,URINE YELLOW; GLUCOSE, URINE NEGATIVE (NEGATIVE); KETONES,URINE NEGATIVE (NEGATIVE); LEUKOCYTE ESTERASE,URINE NEGATIVE (NEGATIVE); NITRITE,URINE NEGATIVE (NEGATIVE); PROTEIN,URINE NEGATIVE (NEGATIVE); URINE SPECIFIC GRAVITY 1.021; UROBILINOGEN,URINE NEGATIVE mg/dL (<2.0)
[2019-07-05 14:02] LABS: URINE AMPHETAMINES SCREEN NEGATIVE; URINE BARBITURATES SCREEN NEGATIVE; URINE BENZODIAZEPINES SCREEN NEGATIVE; URINE COCAINE SCREEN NEGATIVE; URINE METHADONE SCREEN NEGATIVE; URINE PHENCYCLIDINE SCREEN NEGATIVE
[2019-07-05 14:03] LABS: URINE MARIJUANA (THC) SCREEN UNCONFIRMED POSITIVE
--- NOTE | 2019-07-05 15:01 | RADIOLOGY REPORT (SQ) ---
EXAM DESCRIPTION: U/S OB LIMITED COMPLETED DATE/TIME: 07/05/2019 2:22 pm REASON FOR STUDY: check JILLIAN, pt is 41 weeks COMPARISON: None. TECHNIQUE: Limited transabdominal grayscale ultrasound for evaluation of specific requested obstetri beatris parameters. LIMITATIONS: None. FINDINGS: CERVICAL LENGTH: Not seen. JILLIAN: 18.8 cm. FHR: 144 beats per minute. PRESENTATION: Cephalic. PLACENTA: Anterior and fundal. ANATOMY: Not assessed OTHER: Gestation 41 weeks 4 days. IMPRESSION: LIMITED OBSTETRICAL ULTRASOUND WITH MEASURED PARAMETERS DELINEATED ABOVE. Trimester of : Third trimester - 28 weeks to delivery. TECHNICAL DOCUMENTATION: JOB ID: [id number] 2010 [employer]- All Rights Reserved Reading location - IP/workstation name: [email or web address]
== END 2019-07-05 16:24 | disposition home or self-care (01) ==
LOC: LC 13:12
PROVIDERS: ATTEND Obstetrics & Gynecology
PROC: 4A1HXCZ Monitoring of Products of Conception, Cardiac Rate, External Approach (ICD-10-PCS; principal; 2019-07-05)
DX: O48.0 Post-term pregnancy (principal); Z3A.41 41 weeks gestation of pregnancy
CPT/HCPCS: 81005; 80307; 76815; 59025; G0480 ×2; 80349

== ENCOUNTER 2019-07-21 12:33 | Inpatient (IN) | payer MEDICAID ==
[2019-07-21] MEDS ORDERED: RINGERS SOLUTION,LACTATED 1,000 ML IV PRN (13:09)
[2019-07-21] MEDS ORDERED: RINGERS SOLUTION,LACTATED 1,000 ML IV ONE (13:09)
[2019-07-21] MEDS ORDERED: DEXTROSE 40% GEL 15 GM TUBE PO PRN ×2 (13:10)
[2019-07-21] MEDS ORDERED: DEXTROSE 50%-WATER 25 GM/50 ML DISP.SYRIN IV PRN ×2 (13:10)
[2019-07-21] MEDS ORDERED: GLUCAGON,HUMAN RECOMB 1 MG INJ SUBCUT PRN (13:10)
[2019-07-21] MEDS ORDERED: CEFAZOLIN SODIUM 2 GM in DEXTROSE 5%-WATER 50 ML IV PRN (13:20)
[2019-07-21 13:33] LABS: APPEARANCE,URINE CLEAR; BILIRUBIN,URINE NEGATIVE (NEGATIVE); COLOR,URINE YELLOW; GLUCOSE, URINE NEGATIVE (NEGATIVE); KETONES,URINE NEGATIVE (NEGATIVE); LEUKOCYTE ESTERASE,URINE NEGATIVE (NEGATIVE); NITRITE,URINE NEGATIVE (NEGATIVE); PROTEIN,URINE NEGATIVE (NEGATIVE); URINE SPECIFIC GRAVITY 1.006; UROBILINOGEN,URINE NEGATIVE mg/dL (<2.0)
[2019-07-21 13:39] LABS: URINE AMPHETAMINES SCREEN NEGATIVE; URINE BARBITURATES SCREEN NEGATIVE; URINE BENZODIAZEPINES SCREEN NEGATIVE; URINE COCAINE SCREEN NEGATIVE; URINE MARIJUANA (THC) SCREEN NEGATIVE; URINE METHADONE SCREEN NEGATIVE; URINE PHENCYCLIDINE SCREEN NEGATIVE
[2019-07-21 13:46] LABS: ABSOLUTE EOSINOPHILS # (AUTO) 0.1 10^3/uL (0.0-0.6); ABSOLUTE LYMPHOCYTES (AUTO) 2.4 10^3/uL (0.5-4.7); ABSOLUTE MONOCYTES (AUTO) 0.4 10^3/uL (0.1-1.4); ABSOLUTE NEUT (AUTO) 6.4 10^3/uL (1.7-8.2); BASOPHILS % (AUTO) 0.3 % (0-2); EOSINOPHILS % (AUTO) 0.9 % (0-6); HEMATOCRIT 31.7 % (36.0-47.0); HEMOGLOBIN 11.1 g/dL (12.0-15.5); LYMPHOCYTES % (AUTO) 25.5 % (13-45); MEAN CORPUSCULAR HEMOGLOBIN 31.3 pg (27.0-33.4); MEAN CORPUSCULAR VOLUME 89 fl (80-97); MONOCYTES % (AUTO) 4.1 % (3-13); PLATELET COUNT 223 10^3/uL (150-450); RED BLOOD COUNT 3.55 10^6/uL (3.72-5.28); RED CELL DISTRIBUTION WIDTH 14.3 % (11.5-14.0); SEGMENTED NEUTROPHILS % (AUTO) 69.2 % (42-78); TOTAL CELLS COUNTED % (AUTO) 100 %; WHITE BLOOD COUNT 9.2 10^3/uL (4.0-10.5)
[2019-07-21 14:08] LABS: BACTERIA (WET MOUNT) 3+ BACTERIA SEEN; EPITHELIALS (WET MOUNT) 3+ EPITHELIALS SEEN; T.VAGINALIS (WET MOUNT) NO TRICHOMONAS SEEN; WBCS (WET MOUNT) FEW WBCS SEEN; YEAST (WET MOUNT) NO YEAST SEEN
[2019-07-21] MEDS ORDERED: CEFAZOLIN 1 GM/D5W RTU 1 GM/50 ML RTUPB IV ONE (15:18)
[2019-07-21] MEDS ORDERED: CITRIC ACID/SODIUM CITRATE ORAL SOLN 15 ML UDCUP ONE (15:18)
[2019-07-21 15:32] LABS: CHLAM PCR NOT DETECTED (NOT DETECT)
[2019-07-21] MEDS ORDERED: OXYTOCIN 10 UNIT/ML VIAL ONE (16:04)
[2019-07-21] MEDS ORDERED: KETOROLAC TROMETHAMINE INJ/PF 30 MG/1 ML SDV ONE (16:04)
[2019-07-21] MEDS ORDERED: MIDAZOLAM 2 MG/2 ML INJ ONE (16:05)
[2019-07-21] MEDS ORDERED: ACETAMINOPHEN 1,000 MG/100 ML RTUPB IV ONE (16:05)
[2019-07-21] MEDS ORDERED: EPHEDRINE SULFATE INJ 50 MG/1 ML AMPULE ONE (16:05)
[2019-07-21] MEDS ORDERED: OXYTOCIN/NORMAL SALINE 20 UNIT/1,000 ML RTUINJ ONE (16:05)
[2019-07-21] MEDS ORDERED: FENTANYL CITRATE INJ/PF 100 MCG/2 ML AMPUL ONE (16:05)
[2019-07-21] MEDS ORDERED: ONDANSETRON HCL INJ/PF 4 MG/2 ML SDV ONE (16:05)
[2019-07-21] MEDS ORDERED: HYDROMORPHONE HCL INJ/PF 2 MG/ML AMPULE ONE ×2 (16:06→17:51)
[2019-07-21] MEDS ORDERED: PHENYLEPHRINE HCL INJ/PF 10 MG/1 ML SDV ONE (16:06)
[2019-07-21] MEDS ORDERED: KETAMINE HCL INJ 500 MG/10 ML VIAL ONE (16:06)
[2019-07-21] MEDS ORDERED: SIMETHICONE 80 MG TAB.CHEW PO PRN (16:50)
[2019-07-21] MEDS ORDERED: OXYTOCIN/NORMAL SALINE 20 UNIT/1,000 ML RTUINJ IV PRN (16:50)
[2019-07-21] MEDS ORDERED: ACETAMINOPHEN 325 MG TABLET PO PRN (16:50)
[2019-07-21] MEDS ORDERED: PROMETHAZINE HCL INJ 25 MG/1 ML VIAL IV PRN ×3 (16:50→17:10)
[2019-07-21] MEDS ORDERED: DIPH/PERTUSS(ACELL)/TETANUS VAC/PF 0.5 ML SYR (>=10YO) IM PRN (16:50)
[2019-07-21] MEDS ORDERED: MEASLES,MUMPS&RUBELLA VACC/PF 0.5 ML VIAL SUBCUT PRN (16:50)
[2019-07-21] MEDS ORDERED: ACETAMINOPHEN 1,000 MG/100 ML RTUPB IV PRN (16:50)
--- NOTE | 2019-07-21 16:54 | Operative Report ---
Operative Report DATE OF SURGERY: 07/21/19 PREOPERATIVE DIAGNOSIS: Post term with macrosomia POSTOPERATIVE DIAGNOSIS: Same OPERATION: Primary low transverse delivery viable male SURGEON: SADAF ARMENTA ANESTHESIA: Spinal TISSUE REMOVED OR ALTERED: Placenta ESTIMATED BLOOD LOSS: Approximately thousand cc PROCEDURE: The patient was taken to the operating room where spinal anesthesia was obtained and found to be adequate. She was then prepped and draped in the normal sterile fashion and placed in the dorsal supine position with a leftward tilt. A Pfannenstiel skin incision was then made and carried through to the underlying layers of the fascia with the scalpel. The fascia was incised in the midline and the incision extended laterally with the Snider scissors. The superior aspect of the fascial incision was then grasped with [place] clamps elevated and the underlying rectus muscles dissected off bluntly. Attention was then turned to the inferior aspect of the fascial incision which in a similar fashion was grasped, tented up with [place] clamps, and the rectus muscles dissected off bluntly. The rectus muscles were then in the midline and the peritoneum at the amount identified and entered bluntly. The peritoneal incision was then extended superiorly and inferiorly with good visualization of the bladder. [The bladder blade was inserted and the vesicouterine peritoneum identified grasped with [place] pickups and entered sharply with the Metzenbaum scissors. His incision was then extended laterally with the Metzenbaum scissors and a bladder flap created digitally. The bladder blade was then reinserted and the lower uterine segment incised in a transverse fashion with the scalpel. The uterine incision was then extended bluntly. The bladder blade was removed and the infant's head was delivered from cephalic presentation atraumatically. The nose and mouth were suctioned and the cord doubly clamped and cut. And the was handed off to waiting pediatricians. The placenta was then delivered manully and the uterus exteriorized and cleared of all clots and debris. The uterine incision was then repaired with 1-0 Vicryl in a running locked fashion. A second layer of the same suture was used to obtain hemostasis via imbrication of the initial layer. The uterus was returned to the patient's abdomen. The gutters were cleared of all clots and debris. All operative sites were noted to be hemostatic. The fascia was reapproximated with 0 Vicryl in a running fashion from each lateral edge to the midline. The patient tolerated the procedure well. Sponge lap needle and instrument counts are correct -2. 2 g of Ancef were given prior to skin incision. The patient was taken to the recovery area awake and in stable condition.
[2019-07-21] MEDS ORDERED: OXYCODONE-ACETAMINOPHEN 5-325 MG TABLET PO PRN ×2 (17:10)
[2019-07-21] MEDS ORDERED: DIPHENHYDRAMINE HCL 50 MG/ML VIAL IV PRN (17:10)
[2019-07-21] MEDS ORDERED: MEPERIDINE HCL/PF INJ 25 MG/1 ML DISP.SYRIN IV PRN (17:10)
[2019-07-21] MEDS ORDERED: FENTANYL CITRATE INJ/PF 100 MCG/2 ML AMPUL IV PRN ×3 (17:10)
[2019-07-21] MEDS ORDERED: ONDANSETRON HCL INJ/PF 4 MG/2 ML SDV IV PRN (17:10)
--- NOTE | 2019-07-21 18:05 | Delivery Summary ---
Del Sum A-C Datetime Report Generated by CPN: 07/21/2019 18:04 DELIVERY PERSONNEL DELIVERY PERSONNEL: [id number] Delivery Doctor:: Anselmo Moya MD Anesthesiologist:: Jean-Pierre Silva MECHANICAL PROCESS ENGINEER:: Lizeth Osborne,MECHANICAL PROCESS ENGINEER Labor and Delivery Nurse:: Meron Allen RN Airplane Pilot Crop Dusting:: Caryn Garcia RN Nursery Nurse:: Flaquita Garcia RN Prosthetics Lab Technician/TOP PRINTING PRESS OPERATOR: [facility] Prosthetics Lab Technician/TOP PRINTING PRESS OPERATOR: Solange Fuentes, DRY CURE WORKER Additional Personnel: : Tanisha Aidan, DRY CURE WORKER MATERNAL INFORMATION Delivery Anesthesia: Spinal Medications After Delivery: Pitocin Bolus-Please Comment Meds After Delivery Comment: 20 Units/1000 ml NSS Delivery QBL: 948 Maternal Complications: None; Other Other Maternal Complications: macrosomia LABOR SUMMARY EDC: 06/24/2019 00:00 No. Babies in Womb: 1 Attempted: No Labor Anesthesia: None LABOR INFORMATION Oxytocin: N/A Group B Beta Strep: 1 NO GROUP B STREPTOCOCCUS RECOVERED Specimen Collected By jonatan lopez Antibiotics # of Doses: N/A Antibiotics Time of Last Dose: N/A Name of Antibiotic Given: N/A Steroids Given: None Reason Steroids Not Administered: Not Applicable MEMBRANES Membranes Rupture Method: Artificial Rupture of Membranes: 07/21/2019 16:25 Length of Rupture (hr): 0.02 Amniotic Fluid Color: Clear Amniotic Fluid Amount: Large Amniotic Fluid Odor: None VAGINAL DELIVERY Episiotomy: None Laceration #1: None Laceration Extension #1: N/A Laceration Repair: Not Applicable Sponge Count Correct: N/A Sharps Count Correct: N/A CSECTION DELIVERY Primary Indication: Other Other Primary Indication: post-term, suspected macrosomia CSection Urgency: Non-Scheduled CSection Incidence: Primary Labor: No Labor Elective: N/A CSection Incision: Lower Uterine Transverse BABY A INFORMATION Delivery Date/Time: 07/21/2019 16:26 Method of Delivery: Nurse Controlled Delivery: No Born in Route : No : N/A Forceps: N/A Vacuum Extraction: N/A Shoulder Dystocia : No PRESENTATION/POSITION BABY A Presentation: Cephalic Cephalic Presentation: Vertex Vertex Position: N/A Breech Presentation: N/A PLACENTA INFORMATION BABY A Placenta Method of Delivery: Manual Removal Placenta Status: Delivered SCORES BABY A Heart Rate 1 min: >100 bpm Resp Effort 1 min: Good Cry Reflex Irritability 1 min: Cough or Sneeze or Pulls Away Muscle Tone 1 min: Active Motion Color 1 min: Blue/Pale SCORE 1 MIN: 8 Heart Rate 5 min: >100 bpm Resp Effort 5 min: Good Cry Reflex Irritability 5 min: Cough or Sneeze or Pulls Away Muscle Tone 5 min: Active Motion Color 5 min: Body [place], Extremities Blue SCORE 5 MIN: 9 INFORMATION BABY A Gestational Age at Delivery: 43.6 Gestational Status: Post Term- >= 42 Weeks Infant Outcome : Liveborn Infant Condition : Stable Sex: Male IDENTIFICATION BABY A Infant Verification Date/Time: 07/21/2019 17:29 ID Band Number: [id number] Mother's Name Verified: Yes RN Verifying : MMobley, RN BBaidy, RN WEIGHT/LENGTH BABY A Infant Birthweight (gm): 4270 Infant Weight (lb): 9 Infant Weight (oz): 7 Length (in): 21.50 Length (cm): 54.61 CORD INFORMATION BABY A No. Cord Vessels: 3 Nuchal Cord : N/A Cord Blood Taken: Yes-For Storage (Mom's Blood type +) Suction: None ASSESSMENT BABY A Complications: Polyhydramnios Physical Findings at Delivery: Within Normal Limits Respirations: Appears Normal Skin to Skin: Yes Skin to Skin Time (min): 10 [employer] Called : Yes Care By: Flaquita Garcia RN Transferred To: [facility] BABY B INFORMATION : N/A SIGNATURES Signature: with User ID: [email or web address]
[2019-07-21] MEDS ORDERED: MORPHINE SULFATE 10 MG/ML INJ ONE ×2 (18:16→18:31)
[2019-07-21] MEDS: MORPHINE SULFATE 10 MG/ML INJ IV PRN ×2 (18:17→18:32)
[2019-07-21] MEDS: BUPRENORPHINE HCL 2 MG SUBLINGUAL TABLET SL SCH (18:26)
[2019-07-21] MEDS: DOCUSATE SODIUM 100 MG CAPSULE PO SCH (18:30)
[2019-07-21] MEDS: OXYCODONE-ACETAMINOPHEN 5-325 MG TABLET PO PRN (19:39)
[2019-07-21] MEDS ORDERED: KETOROLAC TROMETHAMINE INJ/PF 30 MG/1 ML SDV IV SCH (22:00)
[2019-07-21] MEDS: MORPHINE SULFATE 10 MG/ML INJ IM PRN (22:21)
[2019-07-22] MEDS: KETOROLAC TROMETHAMINE INJ/PF 30 MG/1 ML SDV IV SCH ×3 (01:31→19:51)
[2019-07-22] MEDS: MORPHINE SULFATE 10 MG/ML INJ IM PRN (02:43)
[2019-07-22] MEDS: OXYCODONE-ACETAMINOPHEN 5-325 MG TABLET PO PRN ×3 (06:58→20:49)
[2019-07-22 08:05] LABS: HEMATOCRIT 29.5 % (36.0-47.0); HEMOGLOBIN 10.2 g/dL (12.0-15.5); MEAN CORPUSCULAR HEMOGLOBIN 30.8 pg (27.0-33.4); MEAN CORPUSCULAR HGB CONC 34.5 g/dL (32.0-36.0); MEAN CORPUSCULAR VOLUME 89 fl (80-97); PLATELET COUNT 231 10^3/uL (150-450); RED CELL DISTRIBUTION WIDTH 14.3 % (11.5-14.0)
[2019-07-22] MEDS: PRENATAL VITAMIN W DHA CAPSULE PO SCH (10:06)
[2019-07-22] MEDS: DOCUSATE SODIUM 100 MG CAPSULE PO SCH ×2 (10:06→17:46)
[2019-07-22] MEDS: BUPRENORPHINE HCL 2 MG SUBLINGUAL TABLET SL SCH ×2 (10:07→17:45)
--- NOTE | 2019-07-22 11:06 | PDOC PROGRESS REPORT ---
Subjective-OB Progress Note for:: 07/22/19 - POD #1, doing well, s/p Primary , Hx HSV outbreak, A+, bottlefeeding Physical Exam (OB) Vital Signs: Temp Pulse Resp BP Pulse Ox 98.6 F 78 16 118/77 100 07/22/19 07:47 07/22/19 07:47 07/22/19 07:47 07/22/19 07:47 07/22/19 07:47 Intake & Output 07/21/19 07/22/19 07/23/19 06:59 06:59 06:59 Intake Total 360 Output Total 500 Balance 360 -500 Weight 59.3 kg - General General Appearance: Appears well, Alert - Dressing Removed: No Incision: Dressing - Lochia Lochia Amount: Small 10-25 ml Lochia Color: Rubra/Red - Abdomen Description: Tender, Soft Hernia Present: No Fundal Description: Firm, Midline Fundal Height: u/u - u/2 - Respiratory Respiratory Status: No respiratory distress - Abdominal Distension: No distension - Genitourinary Genitourinary Note: voiding - Extremities Upper extremity: Normal inspection Lower extremities: Normal inspection - Neurological Cognition: Normal Orientation: AAOx4 - Skin Skin Temperature: Warm Skin Moisture: Dry Objective-Diagnostic Laboratory: 07/22/19 07:45 07/21/19 07/21/19 07/21/19 12:43 13:35 13:35 WBC 9.2 RBC 3.55 L Hgb 11.1 L Hct 31.7 L MCV 89 MCH 31.3 MCHC 35.0 RDW 14.3 H Plt Count 223 Seg Neutrophils % 69.2 Urine Color YELLOW Urine Appearance CLEAR Urine pH 7.0 Ur Specific [place] 1.006 Urine Protein NEGATIVE Urine Glucose (UA) NEGATIVE Urine Ketones NEGATIVE Urine Blood NEGATIVE Urine Nitrite NEGATIVE Ur Leukocyte Esterase NEGATIVE Urine WBC (Auto) 2 Blood Type A POSITIVE Antibody Screen NEGATIVE 07/22/19 07:45 WBC 13.0 H RBC 3.30 L Hgb 10.2 L Hct 29.5 L MCV 89 MCH 30.8 MCHC 34.5 RDW 14.3 H Plt Count 231 Seg Neutrophils % Urine Color Urine Appearance Urine pH Ur Specific [place] Urine Protein Urine Glucose (UA) Urine Ketones Urine Blood Urine Nitrite Ur Leukocyte Esterase Urine WBC (Auto) Blood Type Antibody Screen Assessment and Plan(PN) - Assessment and Plan (1) HSV (herpes simplex virus) infection Is this a current diagnosis for this admission?: Yes (2) Depression Qualifiers: Depression Type: depression during Trimester: third trimester Qualified Code(s): O99.343 - Other mental disorders complicating , third trimester; F32.9 - Major depressive disorder, single episode, unspecified Is this a current diagnosis for this admission?: Yes (3) High risk due to smoking Qualifiers: Trimester: third trimester Qualified Code(s): O99.333 - Smoking (tobacco) complicating , third trimester Is this a current diagnosis for this admission?: Yes (4) Limited care Qualifiers: Trimester: third trimester Qualified Code(s): O09.33 - Supervision of with insufficient care, third trimester Is this a current diagnosis for this admission?: Yes (5) Macrosomia Is this a current diagnosis for this admission?: Yes (6) Post-term beyond 42 weeks, antepartum Is this a current diagnosis for this admission?: Yes (7) complicated by subutex maintenance, antepartum Is this a current diagnosis for this admission?: Yes Plan:: Routine Post Op and PP orders, ambulation encouraged - Time Spent with Patient Time with patient: Less than 15 minutes Medications reviewed and adjusted accordingly: Yes - Disposition Anticipated Discharge: Home Within: within 48 hours
[2019-07-22] MEDS: IBUPROFEN 800 MG TABLET PO SCH ×2 (17:46→23:58)
[2019-07-23] MEDS: KETOROLAC TROMETHAMINE INJ/PF 30 MG/1 ML SDV IV SCH (01:42)
[2019-07-23] MEDS: IBUPROFEN 800 MG TABLET PO SCH ×2 (06:30→12:20)
[2019-07-23] MEDS: DOCUSATE SODIUM 100 MG CAPSULE PO SCH (09:55)
[2019-07-23] MEDS: PRENATAL VITAMIN W DHA CAPSULE PO SCH (09:55)
[2019-07-23] MEDS: BUPRENORPHINE HCL 2 MG SUBLINGUAL TABLET SL SCH (09:55)
--- NOTE | 2019-07-23 10:42 | PDOC DISCHARGE SUMMARY ---
Impression - Admit/DC Date/PCP Admission Date/Primary Care Provider: 07/21/19 12:33 MAYURI DRUMMOND MD Discharge Date: 07/23/19 - POD #2, doing well, desires to go home today, A+, Rubella immune, bottlefeeding, UOB voiding - Discharge Diagnosis (1) HSV (herpes simplex virus) infection Is this a current diagnosis for this admission?: Yes (2) Depression Is this a current diagnosis for this admission?: Yes (3) High risk due to smoking Is this a current diagnosis for this admission?: Yes (4) Limited care Is this a current diagnosis for this admission?: Yes (5) Macrosomia Is this a current diagnosis for this admission?: Yes (6) Post-term beyond 42 weeks, antepartum Is this a current diagnosis for this admission?: Yes (7) complicated by subutex maintenance, antepartum Is this a current diagnosis for this admission?: Yes - Additional Information Resuscitation Status: Full Code Discharge Diet: As Tolerated, Regular Discharge Activity: Activity As Tolerated, No Driving, No Lifting Over 10 Pounds, Pelvic Rest Referrals: MAYURI DRUMMOND MD [Primary Care Provider] - Prescriptions: Ibuprofen [Motrin 800 mg Tablet] 800 mg PO Q6 #60 tablet Oxycodone HCl/Acetaminophen [Percocet 5-325 mg Tablet] 1 tab PO Q4HP PRN #30 tablet PRN Reason: Pain Scale Of 4 Home Medications: Pnv No.95/Ferrous Fum/Folic AC [ Caplet] 1 each PO DAILY 07/05/19 Buprenorphine HCl [Subutex 2 mg Sl Tablet] 8 mg SL BID 07/21/19 Ibuprofen [Motrin 800 mg Tablet] 800 mg PO Q6 #60 tablet 07/23/19 Oxycodone HCl/Acetaminophen [Percocet 5-325 mg Tablet] 1 tab PO Q4HP PRN #30 tablet 07/23/19 HPI Reason(s) for Admission: Ceasarean Section-Primary Admission Note: d/t HSV outbreak Intrapartum Procedure(s): : Low Cervical, Transverse Results Laboratory Results: WBC 13.0 10^3/uL (4.0-10.5) H 07/22/19 07:45 RBC 3.30 10^6/uL (3.72-5.28) L 07/22/19 07:45 Hgb 10.2 g/dL (12.0-15.5) L 07/22/19 07:45 Hct 29.5 % (36.0-47.0) L 07/22/19 07:45 MCV 89 fl (80-97) 07/22/19 07:45 MCH 30.8 pg (27.0-33.4) 07/22/19 07:45 MCHC 34.5 g/dL (32.0-36.0) 07/22/19 07:45 RDW 14.3 % (11.5-14.0) H 07/22/19 07:45 Plt Count 231 10^3/uL (150-450) 07/22/19 07:45 Lymph % (Auto) 25.5 % (13-45) 07/21/19 13:35 [place] % (Auto) 4.1 % (3-13) 07/21/19 13:35 Eos % (Auto) 0.9 % (0-6) 07/21/19 13:35 Baso % (Auto) 0.3 % (0-2) 07/21/19 13:35 Absolute Neuts (auto) 6.4 10^3/uL (1.7-8.2) 07/21/19 13:35 Absolute Lymphs (auto) 2.4 10^3/uL (0.5-4.7) 07/21/19 13:35 Absolute Monos (auto) 0.4 10^3/uL (0.1-1.4) 07/21/19 13:35 Absolute Eos (auto) 0.1 10^3/uL (0.0-0.6) 07/21/19 13:35 Absolute Basos (auto) 0.0 10^3/uL (0.0-0.2) 07/21/19 13:35 Seg Neutrophils % 69.2 % (42-78) 07/21/19 13:35 Urine Color YELLOW 07/21/19 12:43 Urine Appearance CLEAR 07/21/19 12:43 Urine pH 7.0 (5.0-9.0) 07/21/19 12:43 Ur Specific [place] 1.006 07/21/19 12:43 Urine Protein NEGATIVE mg/dL (NEGATIVE) 07/21/19 12:43 Urine Glucose (UA) NEGATIVE mg/dL (NEGATIVE) 07/21/19 12:43 Urine Ketones NEGATIVE mg/dL (NEGATIVE) 07/21/19 12:43 Urine Blood NEGATIVE (NEGATIVE) 07/21/19 12:43 Urine Nitrite NEGATIVE (NEGATIVE) 07/21/19 12:43 Urine Bilirubin NEGATIVE (NEGATIVE) 07/21/19 12:43 Urine Urobilinogen NEGATIVE mg/dL (<2.0) 07/21/19 12:43 Ur Leukocyte Esterase NEGATIVE (NEGATIVE) 07/21/19 12:43 Urine WBC (Auto) 2 /HPF 07/21/19 12:43 Urine Bacteria (Auto) TRACE /HPF 07/21/19 12:43 Squamous Epi Cells Auto 8 /HPF 07/21/19 12:43 Urine Mucus (Auto) OCC /LPF 07/21/19 12:43 Urine Ascorbic Acid NEGATIVE (NEGATIVE) 07/21/19 12:43 Epi Cells (Wet Prep) 3+ EPITHELIALS SEEN 07/21/19 13:35 Bacteria (Wet Prep) 3+ BACTERIA SEEN 07/21/19 13:35 Trichomonas (Wet Prep) NO TRICHOMONAS SEEN 07/21/19 13:35 Vaginal WBC FEW WBCS SEEN 07/21/19 13:35 Vaginal Yeast NO YEAST SEEN 07/21/19 13:35 Urine Opiates Screen NEGATIVE 07/21/19 12:43 Urine Methadone Screen NEGATIVE 07/21/19 12:43 Ur Barbiturates Screen NEGATIVE 07/21/19 12:43 Ur Phencyclidine Scrn NEGATIVE 07/21/19 12:43 Ur Amphetamines Screen NEGATIVE 07/21/19 12:43 U Benzodiazepines Scrn NEGATIVE 07/21/19 12:43 Urine Cocaine Screen NEGATIVE 07/21/19 12:43 U Marijuana (THC) Screen NEGATIVE 07/21/19 12:43 RPR NONREACTIVE (NONREACTIVE) 07/21/19 13:35 Chlamydia DNA (PCR) NOT DETECTED (NOT DETECT) 07/21/19 13:35 N.gonorrhoeae DNA (PCR) NOT DETECTED (NOT DETECT) 07/21/19 13:35 Blood Type A POSITIVE 07/21/19 13:35 Antibody Screen NEGATIVE 07/21/19 13:35 Plan Plan of Treatment: d/c home, f/up with [facility] in one week for incision check Time Spent: Less than 30 Minutes
[2019-07-23 11:52] VITALS: BP 121/73
--- NOTE | 2019-07-26 12:02 | Admission Physical ---
Datetime Report Generated by CPN: 07/26/2019 12:01 CURRENT ADMISSION Chief Complaint: Signs/Symptoms UTI Chief Complaint Other: Pyleonephritis on left Admit Impression : No Active Labor; Intact Membranes; Observation/Evaluation Admit Plan: Admit to Unit; Observation/Evaluation ALLERGIES Medication Allergies: No Medication Allergies: No Known Allergies (07/21/2019) Medication Allergies: No Known Allergies (07/05/2019) Medication Allergies: No Known Allergies (03/21/2017) Latex: No Latex Allergies Food Allergies: none Environmental Allergies: none OBSTETRICAL HISTORY EDC: 06/24/2019 00:00 : 4 Para: 2 Term: 2 : 0 SAB: 1 IAB: 0 Ectopic: 0 Livin Cesareans: 0 VBACs: 0 Multiple Births: 0 Gestational Diabetes: No Rh Sensitization: No Incompetent Cervix: No ASUNCION: No Infertility: No ART Treatment: No Uterine Anomaly: No IUGR: No Hx Previous C/S: No Macrosomia: No Hx Loss/Stillborn: No PIH: No Hx : No Placenta Previa/Abruption: No Depression/PP Depression: No PTL/PROM: No Post Hemorrhage: No Current Procedures: Ultrasound Obstetrical History Comments: G1- 2011 G4- Current SEE RECORDS Alcohol: No Marijuana : Yes Cocaine: No Other Illicit Drugs: Yes Illicit Drug Comments: 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 Cigarettes: Former Smoker. 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 INFECTIOUS HISTORY Gonorrhea: No Genital Herpes: No Chlamydia: No Tuberculosis: No Syphilis: No Hepatitis: No HIV/AIDS Exposure: No Rash or Viral Illness: No HPV: No PHYSICAL EXAM General: Normal HEENT: Normal Neurologic: Normal Thyroid: Normal Heart: Normal Lungs: Normal Breast: Normal Back: Normal Abdomen: Normal Genitourinary Exam: Abnormal Extremities: Normal DTRs: Normal Pelvic Type: Adequate Physical Exam Comments: left CVA tenderness Vital Signs: Reviewed; Within Normal Limits VAGINAL EXAM Dilatation: 0 Effacement: 30 Station: -3 Contraction Comments: No regular ctx MEMBRANES Pooling: Negative Membranes: Intact FETUS A EGA: 39.4 Monitoring: External US FHR- Baseline: 135 Variability: Moderate 6-25bpm Accelerations: 15X15 Decelerations: None FHR Category: Category I Presentation: Vertex Admit Comment: 24 yo at 39.4 wks EGA iwth left pyelonephritis -VSS, afebrile -Left CVA tenderness with light tap -Nitrite positive urine , culture sent -NST reactive in triage. NST BID -Regular diet -Rocephin 2 gms IV Q 24 hours -Labs pending -IVF LR at 125 cc/hr -Plan admit with IV antibiotics, IVFs and UC to guide antibiotic therapy. WIll keep admitted until no CVA tenderness. No fever. -If pain not improved tomorrow would rec Renal US PLANS FOR LABOR AND DELIVERY Labor and Delivery: None Pain Management: Spinal Feeding Preference: Both Benefit of Breast Feed Discussed: Yes Circumcision: Yes INFORMED CONSENT Signature: with User ID: [email or web address] : with User ID: [email or web address]
--- NOTE | 2019-08-15 07:52 | Admission Physical ---
Datetime Report Generated by CPN: 08/15/2019 07:52 CURRENT ADMISSION Chief Complaint: Other Chief Complaint: Signs/Symptoms UTI Chief Complaint Other: possible macrosomic baby and postdates Chief Complaint Other: Pyleonephritis on left Admit Impression : Term, Intrauterine ; No Active Labor Admit Impression : No Active Labor; Intact Membranes; Observation/Evaluation Admit Plan: Admit to Unit; Initiate Section Protocol Admit Plan: Admit to Unit; Observation/Evaluation ALLERGIES Medication Allergies: No Medication Allergies: No Known Allergies (07/21/2019) Medication Allergies: No Known Allergies (07/05/2019) Medication Allergies: No Known Allergies (03/21/2017) Latex: No Latex Allergies Food Allergies: none Environmental Allergies: none OBSTETRICAL HISTORY EDC: 06/24/2019 00:00 : 4 Para: 2 Term: 2 : 0 SAB: 1 IAB: 0 Ectopic: 0 Livin Cesareans: 0 VBACs: 0 Multiple Births: 0 Gestational Diabetes: No Rh Sensitization: No Incompetent Cervix: No ASUNCION: No Infertility: No ART Treatment: No Uterine Anomaly: No IUGR: No Hx Previous C/S: No Macrosomia: No Hx Loss/Stillborn: No PIH: No Hx : No Placenta Previa/Abruption: No Depression/PP Depression: No PTL/PROM: No Post Hemorrhage: No Current Procedures: Ultrasound Obstetrical History Comments: G1- G22011 G4- Current SEE RECORDS Alcohol: No Marijuana : Yes Cocaine: No Other Illicit Drugs: Yes Illicit Drug Comments: 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 Cigarettes: Former Smoker. [id number] MEDICAL HISTORY Diabetes: No Blood Transfusion: No Pulmonary Disease (Asthma, TB): No Breast Disease: No Hypertension: No [employer] Surgery: No Heart Disease: No Hosp/Surgery: Yes Autoimmune Disorder: No Anesthetic Complications: No Kidney Disease: No Abnormal Pap Smear: No Neuro/Epilepsy: No Psychiatric Disorders: No Other Medical Diseases: No Hepatitis/Liver Disease: No Significant Family History: No Varicosities/Phlebitis: No Trauma/Violence : No Thyroid Dysfunction: No Medical History Comments: D _ C in 2009, oral infection (all teeth removed involving infection), 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 INFECTIOUS HISTORY Gonorrhea: No Genital Herpes: No Chlamydia: No Tuberculosis: No Syphilis: No Hepatitis: No HIV/AIDS Exposure: No Rash or Viral Illness: No HPV: No PHYSICAL EXAM General: Normal General: Normal HEENT: Normal HEENT: Normal Neurologic: Normal Neurologic: Normal Thyroid: Deferred Thyroid: Normal Heart: Normal Heart: Normal Lungs: Normal Lungs: Normal Breast: Deferred Breast: Normal Back: Normal Back: Normal Abdomen: Normal Abdomen: Normal Genitourinary Exam: Normal Genitourinary Exam: Abnormal Extremities: Normal Extremities: Normal DTRs: Normal DTRs: Normal Pelvic Type: Adequate Pelvic Type: Adequate Physical Exam Comments: Exam per Dr. Griffin david wnl Physical Exam Comments: left CVA tenderness Vital Signs: Reviewed Vital Signs: Reviewed; Within Normal Limits VAGINAL EXAM Dilatation: 0 Dilatation: 0 Effacement: 25 Effacement: 30 Station: -3 Station: -3 Contraction Comments: irreg Contraction Comments: No regular ctx MEMBRANES Pooling: Negative Membranes: Intact Membranes: Intact FETUS A EGA: 43.6 EGA: 39.4 Monitoring: External US Monitoring: External US FHR- Baseline: 145 FHR- Baseline: 135 Variability: Moderate 6-25bpm Variability: Moderate 6-25bpm Accelerations: 15X15 Accelerations: 15X15 Decelerations: None Decelerations: None FHR Category: Category I FHR Category: Category I Presentation: Vertex Presentation: Vertex Admit Comment: 24yo at 41wks or 43wks based on 31wks scan. Very limited care. She was seen today in the office. POlyhydramnios on US today and macrosomia. h/o heroidn use, On subutex 8mg TID. Discharge planning to be requested. very late care. VAVD for decelerations x 2 in past. EFW today on US was 10#7oz. H/o HSV on buttocks - denied outbreak at this time. Dr. Moya did exam and interview. He reviewed with patient recommendations for Primary C/s. See consents and op report. NICU and nursery. Dr. Moya performed interview and consents. H_P done on behalf of Dr. Moya Admit Comment: 24 yo at 39.4 wks EGA iwth left pyelonephritis -VSS, afebrile -Left CVA tenderness with light tap -Nitrite positive urine , culture sent -NST reactive in triage. NST BID -Regular diet -Rocephin 2 gms IV Q 24 hours -Labs pending -IVF LR at 125 cc/hr -Plan admit with IV antibiotics, IVFs and UC to guide antibiotic therapy. WIll keep admitted until no CVA tenderness. No fever. -If pain not improved tomorrow would rec Renal US PLANS FOR LABOR AND DELIVERY Labor and Delivery: None Pain Management: Spinal Feeding Preference: Both Benefit of Breast Feed Discussed: Yes Circumcision: Yes INFORMED CONSENT Informed Consent Obtained: Section Delivery; Risks, Benefits and Alternatives Discussed Signature: with User ID: Anne Signature: with User ID: [email or web address] : with User ID: [email or web address]
== END 2019-07-23 13:00 | disposition home or self-care (01) | DRG 787 ==
LOC: LR 12:33 → 2S 18:38
PROVIDERS: ADMIT Obstetrics & Gynecology Gynecology; ATTEND Obstetrics & Gynecology Gynecology
PROC: 10D00Z1 Extraction of Products of Conception, Low, Open Approach (ICD-10-PCS; principal; 2019-07-21)
DX: O48.1 Prolonged pregnancy (principal); O98.32 Other infections with a predominantly sexual mode of transmission complicating childbirth; F11.20 Opioid dependence, uncomplicated; O99.324 Drug use complicating childbirth; O36.63X0 Maternal care for excessive fetal growth, third trimester, not applicable or unspecified; O99.824 Streptococcus B carrier state complicating childbirth; Z3A.49 Greater than 42 weeks gestation of pregnancy; O40.3XX0 Polyhydramnios, third trimester, not applicable or unspecified; Z37.0 Single live birth; O99.334 Smoking (tobacco) complicating childbirth; F17.200 Nicotine dependence, unspecified, uncomplicated; O99.344 Other mental disorders complicating childbirth; F32.9 Major depressive disorder, single episode, unspecified; A60.00 Herpesviral infection of urogenital system, unspecified
CPT/HCPCS: 1961; 36415; 80307; 81001; 85025; 85027; 86592; 86850; 86900; 86901; 87081; 87210; 87491; 87591; 94760; J0131; J0571; J0690; J1170; J1885; J2250; J2270; J2370; J2405; J2590; J3010; J3490; J7120